=== PATIENT | female | born 1960 | race Caucasian/White ===

== ENCOUNTER 2019-09-14 06:46 | Outpatient (RCR) | payer MEDICARE, SELFPAY ==
[2019-06-22 08:41] LABS: INR 2.7; Prothrombin Time 27.9 Seconds (11.1-14.7)
[2019-07-20 08:12] LABS: INR 2.9; Prothrombin Time 29.7 Seconds (11.1-14.7)
[2019-08-17 08:20] LABS: INR 3.1; Prothrombin Time 31.3 Seconds (11.1-14.7)
[2019-09-14 07:31] LABS: Alanine Aminotransferase 32 U/L (4-35); Aspartate Amino Transferase 47 U/L (14-36); Cholesterol 163 mg/dL (0-200); HDL Direct 47 mg/dL; Triglycerides 244 mg/dL (<150)
[2019-09-14 07:42] LABS: LDL Cholesterol Direct 80 mg/dL
[2019-09-14 07:43] LABS: INR 2.7; Prothrombin Time 28.5 Seconds (11.1-14.7)
== END 2019-09-20 23:59 | disposition home or self-care (01) ==
LOC: ANHLAB 06:46
PROVIDERS: Visit Provider Internal Medicine Cardiovascular Disease
DX: Z51.81 Encounter for therapeutic drug level monitoring (principal); I63.9 Cerebral infarction, unspecified; E78.5 Hyperlipidemia, unspecified; Z79.01 Long term (current) use of anticoagulants
CPT/HCPCS: 36415; 80061; 84450; 84460; 85610

== ENCOUNTER 2019-12-14 06:58 | Outpatient (RCR) | payer MEDICARE, SELFPAY ==
[2019-10-12 07:49] LABS: INR 3.2; Prothrombin Time 32.1 Seconds (11.1-14.7)
[2019-10-26 07:44] LABS: INR 2.3; Prothrombin Time 24.5 Seconds (11.1-14.7)
[2019-11-16 07:38] LABS: INR 3.1; Prothrombin Time 31.3 Seconds (11.1-14.7)
[2019-12-14 08:00] LABS: INR 2.9; Prothrombin Time 30.1 Seconds (11.1-14.7)
== END 2020-01-10 23:59 | disposition home or self-care (01) ==
LOC: ANHLAB 06:58
PROVIDERS: Visit Provider Internal Medicine Cardiovascular Disease
DX: Z51.81 Encounter for therapeutic drug level monitoring (principal); I63.9 Cerebral infarction, unspecified; Z79.01 Long term (current) use of anticoagulants
CPT/HCPCS: 36415; 85610

== ENCOUNTER 2020-02-08 07:22 | Outpatient (RCR) | payer MEDICARE, SELFPAY ==
[2020-01-11 07:31] LABS: INR 2.5; Prothrombin Time 26.8 Seconds (11.1-14.7)
[2020-02-08 07:54] LABS: INR 2.6; Prothrombin Time 27.5 Seconds (11.1-14.7)
== END 2020-04-10 23:59 | disposition home or self-care (01) ==
LOC: ANHLAB 07:22
PROVIDERS: Visit Provider Internal Medicine Cardiovascular Disease
DX: I63.9 Cerebral infarction, unspecified (principal); Z79.01 Long term (current) use of anticoagulants
CPT/HCPCS: 36415; 85610

== ENCOUNTER 2020-05-16 06:51 | Outpatient (RCR) | payer MEDICARE, SELFPAY ==
[2020-03-07 08:04] LABS: INR 2.8; Prothrombin Time 28.7 Seconds (11.1-14.7)
[2020-04-04 08:29] LABS: INR 3.8; Prothrombin Time 36.7 Seconds (11.1-14.7)
[2020-04-18 07:52] LABS: INR 2.7; Prothrombin Time 28.5 Seconds (11.1-14.7)
[2020-05-16 07:56] LABS: INR 2.5; Prothrombin Time 26.5 Seconds (11.1-14.7)
== END 2020-06-05 23:59 | disposition home or self-care (01) ==
LOC: ANHLAB 06:51
PROVIDERS: Visit Provider Internal Medicine Cardiovascular Disease
DX: Z51.81 Encounter for therapeutic drug level monitoring (principal); I63.9 Cerebral infarction, unspecified; Z79.01 Long term (current) use of anticoagulants
CPT/HCPCS: 36415; 85610

== ENCOUNTER 2020-09-05 06:42 | Outpatient (RCR) | payer MEDICARE, SELFPAY ==
[2020-06-13 07:48] LABS: INR 2.3; Prothrombin Time 25.1 Seconds (11.1-14.7)
[2020-07-11 08:44] LABS: Prothrombin Time 23.3 Seconds (11.1-14.7)
[2020-08-10 08:54] LABS: INR 2.7; Prothrombin Time 28.9 Seconds (11.1-14.7)
[2020-09-05 07:50] LABS: INR 2.4; Prothrombin Time 26.6 Seconds (11.1-14.7)
== END 2020-09-11 23:59 | disposition home or self-care (01) ==
LOC: ANHLAB 06:42
PROVIDERS: Visit Provider Internal Medicine Cardiovascular Disease
DX: Z51.81 Encounter for therapeutic drug level monitoring (principal); I63.9 Cerebral infarction, unspecified; Z79.01 Long term (current) use of anticoagulants
CPT/HCPCS: 36415; 85610

== ENCOUNTER 2020-12-05 06:57 | Outpatient (RCR) | payer MEDICARE, SELFPAY ==
[2020-10-03 07:51] LABS: Basophils Absolute Auto 0.1 K/mm3 (0.0-0.1); Eosinophils Absolute Auto 0.2 K/mm3 (0-0.3); Eosinophils Percent Auto 2.7 % (0-4.4); Hematocrit 39.2 % (37.0-47.0); Hemoglobin 13.1 g/dL (12.0-15.0); Immature Granulocyte Absolute 0.03 K/mm3 (0.00-0.031); Immature Granulocyte Percent A 0.4 % (0-0.5); Lymphocytes Absolute Auto 1.68 K/mm3 (0.9-3.2); Lymphocytes Percent Auto 24.2 % (18.3-44.2); Mean Corpuscular HGB Conc 33.4 g/dl (32-36); Mean Corpuscular Hemoglobin 31.6 pg (26-34); Mean Corpuscular Volume 94.7 fl (80-100); Monocytes Absolute Auto 0.7 K/mm3 (0.1-0.6); Monocytes Percent Auto 9.8 % (2.6-8.5); Neutrophils Absolute Auto 4.3 K/mm3 (1.3-6.7); Neutrophils Percent Auto 61.9 % (45.5-73.1); Platelet Count Result 293 k/mm3 (150-375); Red Blood Count 4.14 M/mm3 (4.2-5.4); Red Cell Distribution Width 15.5 % (11.5-14.5); White Blood Count 6.9 K/mm3 (4.5-10.0)
[2020-10-03 07:54] LABS: Alanine Aminotransferase 23 U/L (4-35); Albumin Level 4.1 g/dL (3.5-5.1); Alkaline Phosphatase 76 U/L (38-126); Anion Gap 5 mmol/L (8-16); Aspartate Amino Transferase 32 U/L (14-36); Bilirubin,Total 0.9 mg/dL (0.2-1.3); Blood Urea Nitrogen 10 mg/dL (7-17); Calcium 9.5 mg/dL (8.4-10.2); Carbon Dioxide 30 mmol/L (22-30); Chloride 99 mmol/L (98-107); Cholesterol 154 mg/dL (0-200); Estimated Glomerular Filt Rate > 60; Glucose 105 mg/dL (65-105); HDL Direct 49 mg/dL; Sodium 134 mmol/L (137-145); Triglycerides 130 mg/dL (<150)
[2020-10-03 07:55] LABS: INR 2.3; Prothrombin Time 26.2 Seconds (11.1-14.7)
[2020-10-03 08:05] LABS: LDL Cholesterol Direct 74 mg/dL
[2020-11-07 07:55] LABS: INR 2.2; Prothrombin Time 24.8 Seconds (11.1-14.7)
[2020-12-05 07:36] LABS: Basophils Absolute Auto 0.1 K/mm3 (0.0-0.1); Eosinophils Absolute Auto 0.2 K/mm3 (0-0.3); Eosinophils Percent Auto 3.1 % (0-4.4); Hematocrit 39.6 % (37.0-47.0); Hemoglobin 13.2 g/dL (12.0-15.0); Immature Granulocyte Absolute 0.03 K/mm3 (0.00-0.031); Immature Granulocyte Percent A 0.5 % (0-0.5); Lymphocytes Absolute Auto 1.67 K/mm3 (0.9-3.2); Lymphocytes Percent Auto 27.4 % (18.3-44.2); Mean Corpuscular HGB Conc 33.3 g/dl (32-36); Mean Corpuscular Hemoglobin 31.4 pg (26-34); Mean Corpuscular Volume 94.3 fl (80-100); Mean Platelet Volume 8.7 fl (7.4-10.4); Monocytes Absolute Auto 0.6 K/mm3 (0.1-0.6); Monocytes Percent Auto 9.5 % (2.6-8.5); Neutrophils Absolute Auto 3.6 K/mm3 (1.3-6.7); Neutrophils Percent Auto 58.5 % (45.5-73.1); Platelet Count Result 292 k/mm3 (150-375); Red Cell Distribution Width 15.2 % (11.5-14.5); White Blood Count 6.1 K/mm3 (4.5-10.0)
[2020-12-05 07:47] LABS: Alanine Aminotransferase 26 U/L (4-35); Albumin Level 4.3 g/dL (3.5-5.1); Alkaline Phosphatase 70 U/L (38-126); Anion Gap 3 mmol/L (8-16); Aspartate Amino Transferase 38 U/L (14-36); Bilirubin,Total 0.9 mg/dL (0.2-1.3); Blood Urea Nitrogen 8 mg/dL (7-17); Calcium 9.4 mg/dL (8.4-10.2); Carbon Dioxide 33 mmol/L (22-30); Chloride 98 mmol/L (98-107); Cholesterol 179 mg/dL (0-200); Estimated Glomerular Filt Rate > 60; Glucose 106 mg/dL (65-105); HDL Direct 52 mg/dL; Potassium 4.5 mmol/L (3.4-5.0); Sodium 134 mmol/L (137-145); Triglycerides 201 mg/dL (<150)
[2020-12-05 07:57] LABS: LDL Cholesterol Direct 83 mg/dL
[2020-12-05 07:58] LABS: INR 2.1; Prothrombin Time 24.2 Seconds (11.1-14.7)
[2020-12-05 09:24] LABS: Free T4 Free Thyroxine Reflex 0.07 ng/dL (0.78-2.19)
== END 2021-01-01 23:59 | disposition home or self-care (01) ==
LOC: ANHLAB 06:57
PROVIDERS: PCP Family Medicine; Referring Provider Nurse Practitioner Family; Visit Provider Internal Medicine Cardiovascular Disease
DX: Z51.81 Encounter for therapeutic drug level monitoring (principal); I63.9 Cerebral infarction, unspecified; I10 Essential (primary) hypertension; E78.5 Hyperlipidemia, unspecified; Z79.01 Long term (current) use of anticoagulants
CPT/HCPCS: 36415; 80048; 80061; 80076; 84439; 84443; 84480; 85025; 85610

== ENCOUNTER 2020-12-05 16:24 | Emergency (ER) | payer MEDICARE, SELFPAY ==
--- NOTE | ~2020-12-05 | CT_ITS ---
EXAMINATION: CT brain wo con DATE: 12/05/2020 19:25 INDICATION: Syncope TECHNIQUE: Computed tomography (CT) of the head was performed without intravenous contrast. The dose- length product was 605.33 mGy-cm. Automated exposure control and iterative reconstruction technique w ere employed. COMPARISON: CT dated 12/05/2020 FINDINGS: No acute intracranial hemorrhage, infarction, mass or mass effect. There are scattered mode rate periventricular and subcortical white matter changes, most likely related to small vessel ischem ic disease (microangiopathy). Chronic right frontal lobe infarction. New left posterior parietal scal p hematoma. No ventriculomegaly or midline shift. Basilar cisterns are patent. No depressed skull fra ctures. No midline shift. IMPRESSION: 1. No acute intracranial abnormality. Reviewed, dictated and finalized at location A.
--- NOTE | ~2020-12-05 | XR_ITS ---
XR hip RT 2V w AP pelvis 12/05/2020 16:57 INDICATION: Right hip pain PROCEDURE: AP pelvis and 2 views right hip COMPARISON: No prior studies for comparison. FINDINGS: Fracture, dislocation or subluxation is not identified. There is moderate colonic fecal redd ding. Pelvic rings are intact. There are healed left superior and inferior pubic rami fractures. The soft tissues appear within normal limits. No foreign bodies are identified. IMPRESSION: 1: No acute fracture. 2: Healed left superior and inferior pubic rami fractures. Reviewed, dictated and finalized at location A.
--- NOTE | ~2020-12-05 | XR_ITS ---
EXAMINATION: XR chest 1V 12/05/2020 19:36 INDICATION: Syncope. History of CVA. PROCEDURE: AP view of the chest COMPARISON: 10/28/2016 FINDINGS: The lungs are clear. The cardiomediastinal silhouette is within normal limits. There are no pleural effusions. There is no pneumothorax suspected. IMPRESSION: 1: NO ACUTE CARDIOPULMONARY DISEASE. Reviewed, dictated and finalized at location A.
--- NOTE | ~2020-12-05 | CT_ITS ---
EXAMINATION: CT abdomen pelvis w con DATE: 12/05/2020 19:33 INDICATION: Sudden change in condition. Generalized abdominal pain. Status post fall. TECHNIQUE: Computed tomography (CT) of the abdomen and pelvis was performed with 100 cc Omnipaque 350 intravenous contrast. The dose-length product was 1306.48 mGy-cm. Automated exposure control and ite rative reconstruction technique were employed. COMPARISON: No prior studies for comparison. FINDINGS: Bibasilar dependent atelectasis. Small pericardial effusion. No significant pleural effusio n. Small hiatal hernia with thickening of the distal esophagus. There is a 1.5 x 1.1 cm stone at the left UPJ causing moderate hydronephrosis. There are bilateral re nal stones. No significant right hydronephrosis. There are bladder stones. There is bladder wall thic kening. There is extensive fatty stranding in the right perirectal region extending into the gluteal location. There is mass effect on the rectum directed to the left. There is extensive complex soft ti ssue in the right flank soft tissues posteriorly. There is a healing left superior pubic ramus fractu re. Normal lumbar lordosis. No acute osseous abnormality. There is abnormal thickening of the sigmoid colon. IMPRESSION: 1. Extensive right posterior flank and right perirectal soft tissue infiltration/fluid. Consider post traumatic hemorrhage, although infection is not excluded. 2: Abnormal thickening of the sigmoid colon, suspicious for adenocarcinoma versus sequela of chronic diverticulitis. 3: Left UPJ stone measuring 1.5 cm with moderate hydronephrosis. Bilateral nephrolithiasis. 4: Bladder wall thickening multiple bladder stones. Findings suspicious for chronic cystitis. 5: Small hiatal hernia with thickened distal esophagus, concerning for esophagitis. 6: Small pericardial effusion. Reviewed, dictated and finalized at location A. IMPRESSION: 1. Extensive right posterior flank and right perirectal soft tissue infiltratio n/fluid. Consider posttraumatic hemorrhage, although infection is not excluded. 2: Abnormal thickening of the sigmoid colon, suspicious for adenocarcinoma yulia cory sequela of chronic diverticulitis. 3: Left UPJ stone measuring 1.5 cm with moderate hydronephrosis. Bilateral neph rolithiasis. 4: Bladder wall thickening multiple bladder stones. Findings suspicious for ch ronic cystitis. 5: Small hiatal hernia with thickened distal esophagus, concerning for esophagi tis. 6: Small pericardial effusion.
--- NOTE | ~2020-12-05 | CT_ITS ---
EXAMINATION: CT cervical spine wo con DATE: 12/05/2020 16:44 INDICATION: Neck pain after fall TECHNIQUE: Computed tomography (CT) of the cervical spine was performed without intravenous contrast. The dose-length product was 334 mGy-cm. Automated exposure control and iterative reconstruction tech nique were employed. COMPARISON: None FINDINGS: No fracture, subluxation or dislocation. Vertebral body heights are maintained. No signific ant paraspinal soft tissue abnormality. Osteopenia. There are mild degenerative changes of the facet joints. Odontoid process within normal limits. No prevertebral soft tissue abnormality. No evidence f or perched facet. IMPRESSION: 1. No acute abnormality of the cervical spine. Reviewed, dictated and finalized at location A.
--- NOTE | ~2020-12-05 | CT_ITS ---
EXAMINATION: CT brain wo con DATE: 12/05/2020 16:44 INDICATION: Trauma to the head. Headache. Patient on blood thinners. TECHNIQUE: Computed tomography (CT) of the head was performed without intravenous contrast. The dose- length product was 605.33 mGy-cm. The mA was adjusted according to patient size. Iterative reconstruc tion technique was employed. COMPARISON: CT dated 10/28/2016 FINDINGS: Chronic right frontal lobe infarction. There are scattered moderate periventricular and sub cortical white matter changes, most likely related to small vessel ischemic disease (microangiopathy) . No acute intracranial hemorrhage, infarction, mass or mass effect. Basilar cisterns are patent. Par anasal sinuses and mastoids are pneumatized. IMPRESSION: 1. No acute intracranial abnormality. Reviewed, dictated and finalized at location A.
--- NOTE | ~2020-12-05 | XR_ITS ---
XR hand LT min 3V 12/05/2020 16:57 Indication: Left hand pain after fall Procedure: 3 views left hand Comparison: No prior studies for comparison. Findings: There is mild polyarticular osteoarthritis. No acute fracture or traumatic malalignment. Os teopenia. No erosive changes. No foreign bodies. Impression: 1: No acute fracture. Reviewed, dictated and finalized at location A. Impression: 1: No acute fracture.
[2020-12-05 16:32] VITALS: BP 144/75; PULSE 82; RESP 16; O2SAT 100
--- NOTE | 2020-12-05 16:48 | ED.HEATRA ---
HPI - Head Injury General Chief complaint: Head Injury <Cindy Rodriguez MD - Last Filed: 12/06/20 07:05> Stated complaint: fall <Cindy Rodriguez MD - Last Filed: 12/06/20 07:05> Time Seen by Provider: 12/05/20 19:39 <Cindy Rodriguez MD - Last Filed: 12/06/20 07:05> Source: patient <Cindy Rodriguez MD - Last Filed: 12/06/20 07:05> Mode of arrival: EMS <Cindy Rodriguez MD - Last Filed: 12/06/20 07:05> Limitations: no limitations <Cindy Rodriguez MD - Last Filed: 12/06/20 07:05> History of Present Illness HPI Narrative: This is a 60 year old female who presents for evaluation of head injury s/p fall. Patient accidentally lost her balance going down stair and she fell down 4 steps. She hit the back of her head on stairs, but denies LOC. She denies head, dizziness, nausea or vomiting. She takes coumadin, and she has a laceration to posterior scalp. She has a c collar in place. She also reports mild right hip pain but she reports her pain is only mild. She denies rib pain . She has skin tears to her hand as well. <Cindy Rodriguez MD - Last Filed: 12/06/20 07:05> Related Data Allergies/Adverse reactions: Allergies Allergy/AdvReac Type Severity Reaction Status Date / Time No Known Allergies Allergy Verified 10/28/16 12:03 <Cindy Rodriguez MD - Last Filed: 12/06/20 07:05> Review of Systems Review of Systems: All systems reviewed & are unremarkable except as noted in HPI and below <Cindy Rodriguez MD - Last Filed: 12/06/20 07:05> [facility] Past Medical History Medical History: Medical History (Updated 12/06/20 @ 00:00 by Background Daemon) CVA (cerebral vascular accident) Hyperlipidemia Hypertension <Cindy Rodriguez MD - Last Filed: 12/06/20 07:05> Family History Family History: Family History (Updated 12/08/16 @ 17:51 by DOCTOR UNKNOWN) Father Family history of primary malignant neoplasm of liver <Cindy Rodriguez MD - Last Filed: 12/06/20 07:05> Social History Social History: Social History Smoking status: Current every day smoker Alcohol intake: never Gender identity (if verbalized by the patient): Female <Cinyd Rodriguez MD - Last Filed: 12/06/20 07:05> Exam Const: General: no acute distress and alert <Cindy Rodriguez MD - Last Filed: 12/06/20 07:05> Orientation/consciousness: patient oriented x3 <Cindy Rodriguez MD - Last Filed: 12/06/20 07:05> HENMT: Throat: posterior oropharynx normal, tonsils normal and uvula midline <Cindy Rodriguez MD - Last Filed: 12/06/20 07:05> Other: right posterior scalp lump( chronic); left posterior scalp hematoma with laceration. bleeding controlled <Cindy Rodriguez MD - Last Filed: 12/06/20 07:05> Eyes: Pupils: Equal, round and reactive pupils present <Cindy Rodriguez MD - Last Filed: 12/06/20 07:05> EOM: EOMs intact bilaterally <Cindy Rodriguez MD - Last Filed: 12/06/20 07:05> Chest: Chest palpation & inspection: normal inspection of the chest <Cindy Rodriguez MD - Last Filed: 12/06/20 07:05> Resp: Effort & Inspection: normal respiratory effort and no retractions <Cindy Rodriguez MD - Last Filed: 12/06/20 07:05> Auscultation: clear to auscultation bilaterally <Cindy Rodriguez MD - Last Filed: 12/06/20 07:05> Cardio: Rate: regular rate <Cindy Rodriguez MD - Last Filed: 12/06/20 07:05> Rhythm: regular rhythm <Cindy Rodriguez MD - Last Filed: 12/06/20 07:05> Heart sounds: no murmurs <Cindy Rodriguez MD - Last Filed: 12/06/20 07:05> GI: GI Palp: Yes Soft to palpation, No Tenderness to palpation present (GI) and No Guarding due to palpation present (GI) <Cindy Rodriguez MD - Last Filed: 12/06/20 07:05> Skin: Other: left hand dorsum , skin tear, no bleeding <Cindy Rodriguez MD - Last Filed: 12/06/20 07:05> Neuro: General: patient oriented x3 and moves all extremities <Cindy Rodriguez MD - Last Filed: 12/06/20 07:05>
[2020-12-05 17:15] LABS: Basophils Absolute Auto 0.1 K/mm3 (0.0-0.1); Basophils Percent Auto 0.9 % (0.2-1.2); Eosinophils Absolute Auto 0.2 K/mm3 (0-0.3); Eosinophils Percent Auto 2.5 % (0-4.4); Hematocrit 38.4 % (37.0-47.0); Hemoglobin 12.8 g/dL (12.0-15.0); Immature Granulocyte Absolute 0.04 K/mm3 (0.00-0.031); Immature Granulocyte Percent A 0.5 % (0-0.5); Lymphocytes Absolute Auto 2.02 K/mm3 (0.9-3.2); Lymphocytes Percent Auto 25.3 % (18.3-44.2); Mean Corpuscular HGB Conc 33.3 g/dl (32-36); Mean Corpuscular Hemoglobin 31.4 pg (26-34); Mean Corpuscular Volume 94.3 fl (80-100); Mean Platelet Volume 8.8 fl (7.4-10.4); Monocytes Absolute Auto 0.7 K/mm3 (0.1-0.6); Monocytes Percent Auto 8.8 % (2.6-8.5); Platelet Count Result 287 k/mm3 (150-375); Red Blood Count 4.07 M/mm3 (4.2-5.4); Red Cell Distribution Width 15.1 % (11.5-14.5)
[2020-12-05 17:25] LABS: Alanine Aminotransferase 24 U/L (4-35); Albumin Level 4.2 g/dL (3.5-5.1); Alkaline Phosphatase 64 U/L (38-126); Anion Gap 1 mmol/L (8-16); Aspartate Amino Transferase 38 U/L (14-36); Bilirubin,Total 0.8 mg/dL (0.2-1.3); Blood Urea Nitrogen 10 mg/dL (7-17); Calcium 9.1 mg/dL (8.4-10.2); Carbon Dioxide 34 mmol/L (22-30); Chloride 98 mmol/L (98-107); Estimated CRCL calculation 61 ml/min; Estimated Glomerular Filt Rate > 60; Glucose 101 mg/dL (65-105); Potassium 4.7 mmol/L (3.4-5.0); Sodium 133 mmol/L (137-145)
[2020-12-05 17:27] LABS: INR 2.3; Prothrombin Time 25.6 Seconds (11.1-14.7)
[2020-12-05] MEDS: LIDO 1%/EPINEPHRINE 1:100,000 20 ML VIAL INFILTRATE (17:33)
--- NOTE | 2020-12-05 18:12 | PC.NURSE ---
pt refuses x 2 to ambulate with assist. md made aware. ice pack to posterior head per md request
[2020-12-05] MEDS: ACETAMINOPHEN 500 MG TABLET 1000 MG PO (18:17)
--- NOTE | 2020-12-05 18:39 | PC.NURSE ---
183-While out front of ED waiting for transportation to pull up pt suddenly slumped over to rt side, became unresponsive and incont of urine. rushed back to ed room 10. md present. pt moans to sternal rub. vs: hr 76, o2 sat 97 %, resp 17, bp 86/60 and accucheck 128. pt more arousable at 1842. iv site 18 [address] rt ac. 185-pt drowsy but arousable. pt remembers getting into wheelchair and going to ed exit.
--- NOTE | 2020-12-05 18:40 | ECG_ITS ---
Measurements Intervals [place] Rate: 69 P: 2 IN: 177 QRS: -57 QRSD: 86 T: 121 QT: 412 QTc: 443 Interpretive Statements SINUS OR ECTOPIC ATRIAL RHYTHM LOW QRS VOLTAGE IN PRECORDIAL LEADS ANTEROSEPTAL INFARCT, AGE INDETERMINATE INFERIOR INFARCT, AGE INDETERMINATE BORDERLINE ST-T WAVE ABNORMALITY- LAT/HIGH LAT LEADS BASELINE ARTIFACT- II, III, AVF ABNORMAL ECG Electronically Signed On 12-05-2020 19:01:01 CDT by Govind Alfonso D.O.
[2020-12-05 18:43] LABS: Glucose Point of Care 128 (65-105)
[2020-12-05 18:52] VITALS: BP 86/60; PULSE 76; RESP 17; O2SAT 97
[2020-12-05] MEDS: SODIUM CHLORIDE 0.9% IV 1,000 ML 999 ML IV CONT ×2 (18:57→20:01)
[2020-12-05 19:03] VITALS: BP 85/57; PULSE 66; RESP 14; O2SAT 97
[2020-12-05 19:04] LABS: Hematocrit 37.4 % (37.0-47.0); Hemoglobin 12.5 g/dL (12.0-15.0)
[2020-12-05] MEDS: PHYTONADIONE ADULT INJ 10 MG in DEXTROSE 5% IN WATER 50 ML 100 MG IVPB (20:40)
--- NOTE | 2020-12-05 20:44 | PC.NURSE ---
called [facility] to request transport. ETA 2100
[2020-12-05 20:46] VITALS: BP 113/56; PULSE 70; RESP 17; O2SAT 100
--- NOTE | 2020-12-05 21:24 | PC.NURSE ---
Called [facility] for ETA update. ETA 10 minutes.
== END 2020-12-05 21:10 | disposition short-term general hospital (02) ==
PROVIDERS: General Practice; Emergency Provider Emergency Medicine; PCP Family Medicine
DX: S01.01XA Laceration without foreign body of scalp, initial encounter (principal); S61.412A Laceration without foreign body of left hand, initial encounter; S30.1XXA Contusion of abdominal wall, initial encounter; M25.551 Pain in right hip; R55 Syncope and collapse; Z86.73 Personal history of transient ischemic attack (TIA), and cerebral infarction without residual deficits; E78.5 Hyperlipidemia, unspecified; I10 Essential (primary) hypertension; R94.31 Abnormal electrocardiogram [ECG] [EKG]; R93.3 Abnormal findings on diagnostic imaging of other parts of digestive tract; N13.2 Hydronephrosis with renal and ureteral calculous obstruction; N21.0 Calculus in bladder; K44.9 Diaphragmatic hernia without obstruction or gangrene; W10.9XXA Fall (on) (from) unspecified stairs and steps, initial encounter
CPT/HCPCS: 36415; 70450; 71045; 72125; 73130; 73502; 74177; 80048; 80053; 80061; 80076; 82948; 84439; 84443; 84480; 85014; 85018; 85025; 85610; 85730; 86850; 86900; 86901; 93005; 96361; 96365; 99285; A9270; J3430; J7030; Q9967

== ENCOUNTER 2021-02-06 07:10 | Outpatient (RCR) | payer MEDICARE, SELFPAY ==
[2021-01-02 08:03] LABS: Basophils Absolute Auto 0.1 K/mm3 (0.0-0.1); Eosinophils Absolute Auto 0.2 K/mm3 (0-0.3); Eosinophils Percent Auto 2.4 % (0-4.4); Hematocrit 35.2 % (37.0-47.0); Hemoglobin 11.1 g/dL (12.0-15.0); Immature Granulocyte Absolute 0.03 K/mm3 (0.00-0.031); Immature Granulocyte Percent A 0.5 % (0-0.5); Lymphocytes Absolute Auto 1.24 K/mm3 (0.9-3.2); Mean Corpuscular HGB Conc 31.5 g/dl (32-36); Mean Corpuscular Hemoglobin 31.1 pg (26-34); Mean Corpuscular Volume 98.6 fl (80-100); Mean Platelet Volume 8.4 fl (7.4-10.4); Monocytes Absolute Auto 0.7 K/mm3 (0.1-0.6); Monocytes Percent Auto 10.8 % (2.6-8.5); Neutrophils Percent Auto 65.3 % (45.5-73.1); Platelet Count Result 388 k/mm3 (150-375); Red Blood Count 3.57 M/mm3 (4.2-5.4); Red Cell Distribution Width 18.2 % (11.5-14.5); White Blood Count 6.2 K/mm3 (4.5-10.0)
[2021-01-02 08:14] LABS: INR 2.5; Prothrombin Time 27.6 Seconds (11.1-14.7)
[2021-01-02 09:30] LABS: Alanine Aminotransferase 15 U/L (4-35); Alkaline Phosphatase 83 U/L (38-126); Anion Gap 5 mmol/L (8-16); Aspartate Amino Transferase 28 U/L (14-36); Bilirubin,Total 0.8 mg/dL (0.2-1.3); Blood Urea Nitrogen 8 mg/dL (7-17); Calcium 9.6 mg/dL (8.4-10.2); Carbon Dioxide 28 mmol/L (22-30); Chloride 100 mmol/L (98-107); Cholesterol 152 mg/dL (0-200); Estimated Glomerular Filt Rate > 60; Glucose 106 mg/dL (65-105); HDL Direct 46 mg/dL; Potassium 4.2 mmol/L (3.4-5.0); Sodium 133 mmol/L (137-145); Triglycerides 123 mg/dL (<150)
[2021-01-02 09:41] LABS: LDL Cholesterol Direct 65 mg/dL
[2021-01-02 09:46] LABS: Free T4 Free Thyroxine 0.48 ng/mL (0.78-2.19)
[2021-01-02 10:00] LABS: Total Triiodothyronine (T3) 0.65 NG/ML (0.97-1.69)
[2021-02-06 07:45] LABS: Prothrombin Time 92.5 Seconds (11.1-14.7)
[2021-02-06 08:04] LABS: INR 12.4
== END 2021-04-02 23:59 | disposition home or self-care (01) ==
LOC: ANHLAB 07:10
PROVIDERS: Nurse Practitioner Family; PCP Family Medicine; Visit Provider Internal Medicine Cardiovascular Disease
DX: Z51.81 Encounter for therapeutic drug level monitoring (principal); R79.89 Other specified abnormal findings of blood chemistry; I63.9 Cerebral infarction, unspecified; Z79.01 Long term (current) use of anticoagulants
CPT/HCPCS: 36415; 80048; 80061; 80076; 84439; 84443; 84480; 85025; 85610

== ENCOUNTER 2021-02-08 11:46 | Inpatient (IN) | payer MEDICARE, SELFPAY ==
[2021-02-08] VITALS (48 sets, daily range): BP systolic 75–118; BP diastolic 50–79; PULSE 83–98; RESP 11–21; TEMP 35.6–36.9; O2SAT 88–100; BMI 31.6
--- NOTE | ~2021-02-08 | CT_ITS ---
EXAMINATION: CT abdomen pelvis w con DATE: 02/08/2021 14:36 INDICATION: Sacral decubitus ulcer. TECHNIQUE: Computed tomography (CT) of the abdomen and pelvis was performed with 100 mL Omnipaque 350 intravenous contrast. Automated exposure control and iterative reconstruction technique were employe d. The dose-length product was 606.85 mGy-cm. COMPARISON: CT abdomen and pelvis 12/05/2020 FINDINGS: The visualized portions of the lung bases demonstrate mild atelectasis. No pleural effusion . The heart size is normal. There is an old infarct involving the apex and anterior and septal wilkes of left ventricle. There are coronary artery calcifications. Again seen is a small pericardial effusi on. There is focal steatosis in the liver adjacent to the falciform ligament. Again seen is a 6 mm le noah in right hepatic lobe, likely benign. There are changes of cholecystectomy. There is a small sli ding hiatal hernia. The spleen, pancreas, and adrenal glands are normal. There are stones in the kidn eys including bilateral staghorn calculi. The left kidney stone measures 2.0 cm. There are stones in the bladder. There is diverticulosis of the colon without evidence of diverticulitis. There is a mode rate volume of stool in colon. Pelvic floor relaxation is noted. There is a supraumbilical ventral he rnia containing fat. Right psoas muscle is enlarged with central low attenuation. Left obturator inte rnus muscle is enlarged. There is subcutaneous fat stranding overlying the sacrum. No evidence of ost eomyelitis. IMPRESSION: 1. New enlargement and central low attenuation involving right psoas muscle, consistent with hematoma versus myositis/abscess. New enlargement of left obturator internus muscle, likely hematoma. 2. Bilateral nonobstructing kidney stones. Bladder stones. 3. Supraumbilical ventral hernia containing fat. 4. Subcutaneous fat stranding overlying the sacrum, consistent with inflammation/scarring. No evidenc e of osteomyelitis. Reviewed, dictated and finalized at location A. IMPRESSION: 1. New enlargement and central low attenuation involving right psoas muscle, co nsistent with hematoma versus myositis/abscess. New enlargement of left obturat or internus muscle, likely hematoma. 2. Bilateral nonobstructing kidney stones. Bladder stones. 3. Supraumbilical ventral hernia containing fat. 4. Subcutaneous fat stranding overlying the sacrum, consistent with inflammatio n/scarring. No evidence of osteomyelitis.
--- NOTE | ~2021-02-08 | CT_ITS ---
EXAMINATION: CT brain wo con INDICATION: Generalized weakness, history of CVA COMPARISON: 12/05/2020 TECHNIQUE: Standard unenhanced head CT. The dose-length product (DLP) was 681.00 mGy-cm. The mA was a djusted according to patient size. Iterative reconstruction technique was employed. FINDINGS: There is no acute intraparenchymal hemorrhage. No evidence of mass lesion. No evidence of a cute infarction. There is moderate periventricular and subcortical hypodensity probably related to sm all vessel ischemic disease. There is mild prominence of the sulci and ventricles related to cerebral atrophy. Intracranial calcified cerebral atherosclerosis is noted. There are no extra-axial collecti ons. There is no mass effect or midline shift. The orbits and soft tissues are unremarkable. The visu alized sinuses and mastoid air cells are well aerated. IMPRESSION: 1. No acute intracranial abnormality. 2. Age related findings. Reviewed, dictated and finalized at location B.
--- NOTE | ~2021-02-08 | XR_ITS ---
EXAMINATION: XR chest 1V portable INDICATION: Weakness TECHNIQUE: Portable AP chest at 1307 hours COMPARISON: 12/05/2020 FINDINGS: There are minimal left basilar airspace opacities. No pleural effusion or pneumothorax is i dentified. The cardiomediastinal silhouette is there is osteoarthritis of the shoulders. Severe cervi radha spondylosis is noted. IMPRESSION: 1. Minimal left basilar airspace opacity, consistent with atelectasis versus pneumonia. Reviewed, dictated and finalized at location B. IMPRESSION: 1. Minimal left basilar airspace opacity, consistent with atelectasis versus pn eumonia.
--- NOTE | 2021-02-08 12:44 | ECG_ITS ---
Measurements Intervals [place] Rate: 90 P: 41 AR: 160 QRS: -30 QRSD: 86 T: 50 QT: 379 QTc: 464 Interpretive Statements SINUS RHYTHM ANTEROSEPTAL INFARCT, AGE INDETERMINATE INFERIOR INFARCT, AGE INDETERMINATE BORDERLINE ST-T WAVE ABNORMALITY- HIGH LATERAL LEADS BASELINE ARTIFACT- I, II, III, AVR, AVL, AVF, V1-V6 ABNORMAL ECG Electronically Signed On 02-08-2021 13:50:34 CDT by Govind Alfonso D.O.
--- NOTE | 2021-02-08 12:48 | ED.RECABL ---
HPI - Recheck/Abnormal Lab/Rx General Chief Complaint: Recheck/Abnormal Lab/Rx Stated Complaint: Low INR Time Seen by Provider: 02/08/21 12:27 Source: family and RN notes reviewed Mode of arrival: wheelchair Limitations: other (poor historian) History of Present Illness HPI narrative: This is a 60 year old female with history of CVA, CHF, chronic anticoagulation who presents from home for evaluation of high INR. Patient takes warfarin daily for history of CVA. On review of her medical records, she had INR 12.4 on 02/06/21. She states she was told by her accounting practice manager, Dr. Mora, that she needed to come to ER . Her family states patient stopped walking approximately 2-3 weeks. She was taking care of herself until 1 week ago. Her son is at bedside, and he states his noticed patient had a bleeding buttock wound on Monday . It is unclear how long she had had these buttock wounds, and patient states she does not know how long the wounds have been present. She states it has not been bothering her. She denies any pain. She denies nausea, vomiting, chest pain, sob, headache, dizziness. Her family states patient has not fallen since November. She also denies bloody stools. complaint: abnormal lab Related Data Home Medications Medication Instructions Recorded Confirmed atorvastatin 80 mg PO DAILY 02/08/21 02/08/21 levothyroxine 75 mcg PO DAILY 02/08/21 02/08/21 lisinopril 5 mg PO DAILY 02/08/21 02/08/21 metoprolol succinate 50 mg PO DAILY 02/08/21 02/08/21 warfarin See Rx Instructions .ROUTE .COMPLEX 02/08/21 02/08/21 Allergies Allergy/AdvReac Type Severity Reaction Status Date / Time No Known Allergies Allergy Verified 02/08/21 17:39 Review of Systems Review of Systems: All systems reviewed & are unremarkable except as noted in HPI and below [facility] Past Medical History Medical History (Updated 02/08/21 @ 21:40 by Cindy Rodriguez MD) Abnormal stress test (10/31/16) Large area of severe infarct involving left ventricular apex, all apical segments, and mid inferior and mid inferolateral segments with apical akinesis and global hypokinesis with left ventricular ejection fraction measuring 35%. Cerebrovascular accident (10/2016) Punctate right parietal focus on MRI on 10/28/2016 Likely cardioembolic in etiology though no thrombus seen at that point in time. Coronary artery disease Cardiac catheterization on 11/23/2016 showed proximal occlusion of the LAD with left collaterals involving the distal LAD, 1st diagonal artery had 90% ostial stenosis, 70% ostial on when, mid circumflex lesion that was 80% and then a chronic total occlusion, 2nd obtuse marginal artery had 85% ostial lesion with left collaterals and a proximally occluded RCA. Patient of Dr. Tino Mora. Hyperlipidemia Hypertension Hypothyroidism Ischemic cardiomyopathy Echocardiogram on 05/28/2019 showed normal LV wall thickness, moderate enlargement of the LV cavity, moderate global LV systolic dysfunction, impaired diastolic relaxation grade 1, estimated EF of 35% and a measured EF of 38%. Multiple wall motion abnormalities noted. She has continued to refuse a defibrillator. Tobacco dependence White matter abnormality on MRI of brain (10/28/16) Extensive white matter disease, probably quiescent multiple sclerosis. Surgical History Surgical History (Updated 02/08/21 @ 20:47 by Beverly Murry PA-C) History of cardiac catheterization (11/23/16) Severe triple-vessel coronary artery disease with severely reduced LV systolic function and an EF of 25% and large anteroapical aneurysm. Hx of cholecystectomy Family History Family History (Updated 02/08/21 @ 20:48 by Beverly Murry PA-C) Father Liver cancer Mother Chronic obstructive pulmonary disease Sibling Acute myocardial infarction Other Family history of primary malignant neoplasm of liver Social History Social History (Updated 02/08/21 @ 20:49 by Beverly Murry P
[2021-02-08] MEDS: SODIUM CHLORIDE 0.9% IV 1,000 ML 999 ML IV CONT ×2 (13:00→15:28)
[2021-02-08 13:14] LABS: Basophils Percent Auto 0.3 % (0.2-1.2); Eosinophils Absolute Auto 0.1 K/mm3 (0-0.3); Eosinophils Percent Auto 0.3 % (0-4.4); Hematocrit 29.7 % (37.0-47.0); Immature Granulocyte Absolute 0.24 K/mm3 (0.00-0.031); Immature Granulocyte Percent A 1.6 % (0-0.5); Lymphocytes Absolute Auto 1.45 K/mm3 (0.9-3.2); Lymphocytes Percent Auto 9.5 % (18.3-44.2); Mean Corpuscular HGB Conc 33.7 g/dl (32-36); Mean Corpuscular Hemoglobin 29.2 pg (26-34); Mean Corpuscular Volume 86.6 fl (80-100); Mean Platelet Volume 8.1 fl (7.4-10.4); Monocytes Absolute Auto 1.2 K/mm3 (0.1-0.6); Monocytes Percent Auto 7.7 % (2.6-8.5); Neutrophils Absolute Auto 12.4 K/mm3 (1.3-6.7); Neutrophils Percent Auto 80.6 % (45.5-73.1); Platelet Count Result 556 k/mm3 (150-375); Red Blood Count 3.43 M/mm3 (4.2-5.4); Red Cell Distribution Width 17.1 % (11.5-14.5); White Blood Count 15.3 K/mm3 (4.5-10.0)
[2021-02-08 13:22] LABS: Lactic Acid Reflex 2.2 mmol/L (0.7-2.1)
[2021-02-08 13:23] LABS: Prothrombin Time 95.9 Seconds (11.1-14.7)
[2021-02-08 13:25] LABS: Alanine Aminotransferase 44 U/L (4-35); Albumin Level 3.4 g/dL (3.5-5.1); Alkaline Phosphatase 134 U/L (38-126); Anion Gap 8 mmol/L (8-16); Aspartate Amino Transferase 48 U/L (14-36); Bilirubin,Total 0.9 mg/dL (0.2-1.3); Blood Urea Nitrogen 5 mg/dL (7-17); Calcium 8.9 mg/dL (8.4-10.2); Carbon Dioxide 24 mmol/L (22-30); Chloride 87 mmol/L (98-107); Estimated CRCL calculation 87 ml/min; Estimated Glomerular Filt Rate > 60; Glucose 110 mg/dL (65-105); Sodium 119 mmol/L (137-145)
[2021-02-08 13:31] LABS: Partial Thromboplastin Time 171.1 SECONDS (22.3-36.8)
--- NOTE | 2021-02-08 13:45 | PC.NURSE ---
Patient aware of the need for a urine specimen and still cannot urinate. Patient agrees to straight catheter to obtain specimen.
[2021-02-08 14:27] LABS: Add Urine Microscopic? YES; Appearance Urine Cloudy (Clear); Bacteria Urine Trace /hpf; Bilirubin Urine Negative (Negative); Blood Urine 3+ (Negative); Color Urine Amber (Yellow); Glucose Urine UA Negative (Negative); Ketones Urine Negative (Negative); Leukocyte Esterase Ur Negative LEU/UL (Negative); Mucus Urine Rare /lpf; Nitrate Urine Negative (Negative); Protein Urine 2+ mg/dL (Negative); RBC Urine >75 /hpf (0-2); Specific Grav Ur 1.011 (1.001-1.035); WBC Urine 21-30 /hpf
[2021-02-08 15:26] LABS: CRP 6.6 mg/dL (<1.0)
[2021-02-08 15:39] LABS: Creatine Kinase 135 U/L (30-135)
[2021-02-08 15:42] LABS: Erythrocyte Sedimentation Rate 90 mm/hr (0-20)
[2021-02-08] MEDS: PHYTONADIONE ADULT INJ 10 MG in DEXTROSE 5% IN WATER 50 ML 100 MG IVPB (15:57)
[2021-02-08 16:09] LABS: Reflex Lactic Acid Yes or No Add Lactic
--- NOTE | 2021-02-08 16:15 | PM.IMHP ---
H&P: HPI History of Present Illness Date/Time: 02/08/21 16:15 Chief Complaint: Elevated INR. Narrative: This is a 60-year-old female smoker with history of stroke on long-term warfarin, combined systolic and diastolic congestive heart failure, hypertension, and hyperlipidemia who presented to the emergency department earlier today after she received a call from Dr. Mora is office that her INR was 12.4 and that she needed to come to the ER. She is a very poor historian and unfortunately family members are not around at this time and thus some of the following is supplemented via a review of her electronic medical records as well as discussions with the nursing staff. She lives at home with her and some of their children and up until 3 weeks ago she was up and ambulating and caring for herself. Since that time she has stayed on the main floor of their home and spends a majority of her time in the recliner, really only getting up on occasion to use the restroom, with the help of family members. She has a difficult time telling me why she has been the recliner aside from the fact that she is afraid that she is going to fall again. It looks like she was seen in the emergency department at end of November with a fall and she was transferred to [facility] after CT showed extensive right posterior flank and right perirectal soft tissue infiltration/fluid. She was observed overnight and discharged home the next day. She has not had any fall since that time. She denies a physical inability to get up, specifically denying weakness. Family members have her encouraged her to come in for evaluation though she has refused until today. I am not sure how she made it out of the house to have her INR drawn on the given the shape she is in today. She has a sacral decubitus ulcer with bruising and maceration on the buttocks and upper thighs and dark matter caked between her toes and under her nails that she says is due to dirt. She seems confused and when questioned she does admit that she has felt a bit confused over the last several days, mainly at night time. Her appetite has been poor with mild nausea but no vomiting. She denies headache, auditory and visual changes, focal weakness, paresthesias, fever, chills, sweats, back pain, abdominal pain, incontinence, diarrhea, and dysuria. The patient says that her family members have been giving her her medications and is impossible for her to have taken more than prescribed. Of note, a brain MRI done in October 2016 when the patient was admitted for stroke showed extensive white matter disease, probably quiescent multiple sclerosis, but I do not see that she has had any follow-up for this. Review of Systems Review of Systems: Narrative: Twelve systems were reviewed with pertinent positives and negatives as per HPI. Somewhat limited as she is not a very good historian although she is alert and oriented x4. She does deny fever, chills, and sweats. No auditory or visual changes. She denies dysphagia. No recent cold or flu symptoms. She denies chest pain and pleuritic pain. No cough or shortness of breath. She denies vomiting. She denies epistaxis but it appears that she has some dry blood under her nose. She denies hematuria, hematochezia, and melena. No NSAID use. She does not use drugs or alcohol. Except as documented, all other systems were reviewed and are negative. [facility] Past Medical History Medical History Abnormal stress test (10/31/16) Large area of severe infarct involving left ventricular apex, all apical segments, and mid inferior and mid inferolateral segments with apical akinesis and global hypokinesis with left ventricular ejection fraction measuring 35%. Cerebrovascular accident (10/2016) Punctate right parietal focus on MRI on 10/28/2016 Likely cardioembolic in etiology though no thrombus seen at that point in time. Coronary artery disease Cardiac catheterization
--- NOTE | 2021-02-08 16:50 | PC.NURSE ---
Patient's O2 ranging from 85%-90%. Patient placed on 4L via NC.
--- NOTE | 2021-02-08 17:39 | ADMGEN ---
This patient, Denise Steen, was admitted to IMU Room 206-02. Patient/family oriented to hospital policies and general routines including ID bracelet, bed and alarms, visiting hours, pain management, procedures, bathroom and other care routines, personal items, smoking policy, room service/diet, and visiting hours. Information on how to activate the Rapid Response Team has been discussed. Patient/Family are encouraged to report perceived risks to care and to ask questions if they do not understand what they are told or what they should do.
[2021-02-08 18:12] LABS: Anion Gap 3 mmol/L (8-16); Blood Urea Nitrogen 5 mg/dL (7-17); Calcium 8.4 mg/dL (8.4-10.2); Carbon Dioxide 26 mmol/L (22-30); Chloride 93 mmol/L (98-107); Estimated CRCL calculation 88 ml/min; Estimated Glomerular Filt Rate > 60; Glucose 100 mg/dL (65-105); Potassium 3.7 mmol/L (3.4-5.0); Sodium 122 mmol/L (137-145)
[2021-02-08 18:21] LABS: NT Pro B Type Natriuretic Pept 493 pg/mL (5-100)
[2021-02-08 19:46] LABS: Free T4 Free Thyroxine Reflex 0.78 ng/dL (0.78-2.19)
[2021-02-08 20:46] LABS: Total Triiodothyronine (T3) 0.49 NG/ML (0.97-1.69)
[2021-02-08 21:30] LABS: Iron 28 ug/dL (37-170)
[2021-02-08 21:40] LABS: Percent Iron Saturation 11 % (20-50)
[2021-02-08 22:23] LABS: Hematocrit 26.3 % (37.0-47.0); Hemoglobin 8.8 g/dL (12.0-15.0)
[2021-02-08 22:32] LABS: Alanine Aminotransferase 38 U/L (4-35); Albumin Level 2.8 g/dL (3.5-5.1); Alkaline Phosphatase 103 U/L (38-126); Aspartate Amino Transferase 43 U/L (14-36); Bilirubin,Total 1.1 mg/dL (0.2-1.3); Magnesium 1.8 mg/dL (1.6-2.3); Sodium 122 mmol/L (137-145)
[2021-02-08 22:38] LABS: Folic Acid 7.2 ng/mL (2.76->20)
[2021-02-08] MEDS: SODIUM CHLORIDE 0.9% IV 250 ML 30 ML IV CONT (23:05)
[2021-02-09] VITALS (17 sets, daily range): BP systolic 108–125; BP diastolic 52–72; PULSE 76–116; RESP 14–16; TEMP 35.7–36.8; O2SAT 95–99; BMI 31.5; BMI 10.0
[2021-02-09] MEDS: SODIUM CHLORIDE 0.9% IV 1,000 ML 75 ML IV CONT ×2 (02:46→17:01)
[2021-02-09 03:02] LABS: Sodium 124 mmol/L (137-145)
--- NOTE | 2021-02-09 03:15 | PC.NURSE ---
per patient request marsha hands soaked in warm/soapy water; nails cleaned and trimmed. They look so much better - thank you.
[2021-02-09] MEDS: LEVOTHYROXINE SODIUM 75 MCG TABLET PO (06:06)
[2021-02-09 06:32] LABS: Basophils Percent Auto 0.4 % (0.2-1.2); Eosinophils Absolute Auto 0.1 K/mm3 (0-0.3); Eosinophils Percent Auto 0.6 % (0-4.4); Hematocrit 25.4 % (37.0-47.0); Hemoglobin 8.6 g/dL (12.0-15.0); Immature Granulocyte Absolute 0.18 K/mm3 (0.00-0.031); Immature Granulocyte Percent A 1.6 % (0-0.5); Lymphocytes Absolute Auto 1.58 K/mm3 (0.9-3.2); Mean Corpuscular HGB Conc 33.9 g/dl (32-36); Mean Corpuscular Hemoglobin 28.9 pg (26-34); Mean Corpuscular Volume 85.2 fl (80-100); Monocytes Absolute Auto 1.1 K/mm3 (0.1-0.6); Neutrophils Absolute Auto 8.3 K/mm3 (1.3-6.7); Neutrophils Percent Auto 73.4 % (45.5-73.1); Platelet Count Result 501 k/mm3 (150-375); Red Blood Count 2.98 M/mm3 (4.2-5.4); Red Cell Distribution Width 16.8 % (11.5-14.5); White Blood Count 11.3 K/mm3 (4.5-10.0)
[2021-02-09 06:49] LABS: Alanine Aminotransferase 37 U/L (4-35); Albumin Level 3.1 g/dL (3.5-5.1); Alkaline Phosphatase 109 U/L (38-126); Anion Gap 4 mmol/L (8-16); Aspartate Amino Transferase 53 U/L (14-36); Bilirubin,Total 1.1 mg/dL (0.2-1.3); Blood Urea Nitrogen 2 mg/dL (7-17); Calcium 8.4 mg/dL (8.4-10.2); Carbon Dioxide 25 mmol/L (22-30); Chloride 95 mmol/L (98-107); Estimated CRCL calculation 88 ml/min; Estimated Glomerular Filt Rate > 60; Glucose 89 mg/dL (65-105); Magnesium 1.8 mg/dL (1.6-2.3); Potassium 3.8 mmol/L (3.4-5.0); Sodium 124 mmol/L (137-145)
--- NOTE | 2021-02-09 06:53 | PC.NURSE ---
patient minimally incontinent throughout shift. Bladder scan performed result [id number] remaining in the bladder. Telephoned Dr. Chavez - order received to insert urinary catheter for accurate I/O. Immediate return of dark, foul smelling urine with dark sediment.
[2021-02-09 07:38] LABS: Creatinine Urine 71.2 mg/dL
[2021-02-09 07:48] LABS: Sodium Urine Random 7 meq/L
[2021-02-09 08:10] LABS: INR 1.3
[2021-02-09 08:11] LABS: Partial Thromboplastin Time 35.4 SECONDS (22.3-36.8)
[2021-02-09] MEDS: METOPROLOL SUCCINATE EXT REL 50 MG TABCR PO (09:29)
[2021-02-09] MEDS: ATORVASTATIN 40 MG TABLET 80 MG PO (09:29)
--- NOTE | 2021-02-09 09:40 | PM.CNGS ---
Assessment and Plan Assessment and plan (1) Decubitus ulcer of sacral region: Code(s): L89.159 - Pressure ulcer of sacral region, unspecified stage Status: Acute Assessment and Plan: Stage II sacral decubitus ulcer with superficial maceration and excoriation of surrounding skin extending anteriorly towards her vagina, bilateral groin, and left posterior thigh. This is likely a multifactorial problem with her recent immobility, poor nutrition, and poor hygiene. This all appears to be superficial with no indication for surgical debridement at this time. We will initiate local wound care with triple care antifungal barrier cream and I have asked the nurse to thoroughly wash the patient's skin and wounds. Thank you for allowing us to see the patient in consultation. (2) Supratherapeutic INR: Code(s): R79.1 - Abnormal coagulation profile Status: Acute Assessment and Plan: INR 12.4 as an outpatient and rechecked on admission with INR of 13. Received vitamin K and 1 unit FFP, with INR down to 1.3. (3) Abnormal computed tomography of abdomen and pelvis: Code(s): R93.5 - Abnormal findings on diagnostic imaging of other abdominal regions, including retroperitoneum Status: Acute Assessment and Plan: CT scan suggests possible hematoma of the right psoas muscle and left obturator internus muscle with an INR of 13 on admission. She has received vitamin K and 1 unit of FFP with her repeat INR this morning at 1.3. Hemoglobin dropped from 10 to 8.8 but remains 8.6 this morning. Hemodynamically stable. Continue to monitor H/H. (4) Normocytic anemia: Code(s): D64.9 - Anemia, unspecified Status: Acute Assessment and Plan: Monitor labs. See above. (5) Hyponatremia: Code(s): E87.1 - Hypo-osmolality and hyponatremia Status: Acute Assessment and Plan: Sodium 119 on admission and slowly trending up with cautious IV fluid rehydration. Trend labs. Management per Hospitalist. (6) Ischemic cardiomyopathy: Code(s): I25.5 - Ischemic cardiomyopathy Status: Chronic (7) Coronary artery disease: Code(s): I25.10 - Atherosclerotic heart disease of [place] coronary artery without angina pectoris Status: Chronic (8) White matter abnormality on MRI of brain: Onset Date: 10/28/16 Code(s): R90.82 - White matter disease, unspecified Status: Chronic Assessment and Plan: Seen on previous brain MRI in October 2016. Neurology was consulted. Additional Plan I have discussed the patient's case and plan of care with Dr. Garza. History of Present Illness Consult details Consult date: 02/09/21 Reason for consult: wound care (Sacral decubitus ulcer) Requesting physician: Cindy Rodriguez MD Narrative: This is a 60-year-old female with a history of stroke and coronary artery disease on long-term anticoagulation, congestive heart failure, and hypertension, who presented to the emergency department yesterday as directed by her commercial property administrator for outpatient lab results of an INR of 12.4. She is alert and oriented x3 today, but apparently was more confused initially on admission. She is able to tell me that she has been more sedentary at home over the past 1-2 months. She reports spending most of her time in the recliner because she is scared of falling. She knows that she has a sacral wound but is unsure how long it has been there. No family is at the bedside and she is a poor historian, so her history has been compiled from her electronic medical record and questioning her as well. She reports that she has not been getting up to use the restroom recently and has been using depends. Her daughter then help clean her up at the sink after urinating or moving her bowels. She reports only taking sponge baths for the past few weeks as well and cannot tell me how often those are done. She denies really leaving her recliner much at all during the day due to fear
[2021-02-09 09:53] LABS: Sodium 124 mmol/L (137-145)
[2021-02-09 11:56] LABS: Sodium 124 mmol/L (137-145)
--- NOTE | 2021-02-09 12:30 | WPDNEURCNPN ---
Assessment and Plan Additional Plan abnormal coagulation profile with the treatment as already been ordered CT of the abdomen documented new enlargement and central low attenuation right psoas muscle consistent with a hematoma versus myositis or abscess in addition to the new enlargement the left obturator internus muscle likely hematoma bilateral nonobstructing renal stones with bladder stones as well and supra umbilical ventral hernia and subcutaneous fat stranding overlying the sacrum consistent with the inflammation or scattering likely CT scan of the head is negative for any epidural or subdural bleed and chest x-ray is also negative except minimal left basilar airspace opacity consistent with atelectasis versus pneumonia and plan is to continue medical care as such considering the intra-abdominal bleed lower extremities will be observe for any progressive weakness of the lower extremities Consult date: 02/09/21 Time Seen: 11:30 HPI: Denise Steen is a 60 year old female admitted to the hospital with the complaints of elevated INR in addition to the comorbid conditions of 1. Smoker 2. Previous stroke 3. Long-term warfarin therapy 4. Congestive heart failure 5. Hypertension 6. Hyperlipidemia she was brought to the hospital because she receives the core former physician her INR was 12.4 she lives at home with her she was up and about ambulating and caring for herself is spent most of the time in her recliner and occasionally getting up to use the restroom she was seen in the emergency room at the end of November with a fall and was transferred to [facility] after CT scan revealed extensive right posterior flank a right perirectal soft tissue infiltration of the fluid she has not had any falls since that time she had diffuse up until the day of admission to the hospital to come to the hospital he was also noted to have a sacral decubitus she also complained of some confusion over the last several days but she complained of no headache no visual or auditory difficulties she has had an MRI of the brain in October of 2016 when she was admitted for the stroke and was documented to have extensive white matter disease and questionable multiple sclerosis but she had no follow up with any physician her past history as mentioned before consistent with the his stroke, coronary artery disease, hypertension, and ischemic cardiomyopathy with tobacco dependence and white matter abnormalities on MRI of the brain in October of 2016 she has a 47 is smoking pack years history and current everyday smoker though no alcohol intake Review of Systems Review of Systems: All systems reviewed & are unremarkable except as noted in HPI and below PMFSH Past Medical History Medical History Abnormal stress test (10/31/16) Large area of severe infarct involving left ventricular apex, all apical segments, and mid inferior and mid inferolateral segments with apical akinesis and global hypokinesis with left ventricular ejection fraction measuring 35%. Cerebrovascular accident (10/2016) Punctate right parietal focus on MRI on 10/28/2016 Likely cardioembolic in etiology though no thrombus seen at that point in time. Coronary artery disease Cardiac catheterization on 11/23/2016 showed proximal occlusion of the LAD with left collaterals involving the distal LAD, 1st diagonal artery had 90% ostial stenosis, 70% ostial on when, mid circumflex lesion that was 80% and then a chronic total occlusion, 2nd obtuse marginal artery had 85% ostial lesion with left collaterals and a proximally occluded RCA. Patient of Dr. Tino Mora. Hyperlipidemia Hypertension Hypothyroidism Ischemic cardiomyopathy Echocardiogram on 05/28/2019 showed normal LV wall thickness, moderate enlargement of the LV cavity, moderate global LV systolic dysfunction, impaired diastolic relaxation grade 1, estimated EF of 35% and a measured EF of 38%. Multiple wall motion abnormalities noted. S
--- NOTE | 2021-02-09 13:04 | PCNSR ---
On 02/09/21, the student, Alison Morel, provided care and completed [facility] documentation on this patient. I have reviewed the student's documentation and agree with the findings.
[2021-02-09 15:32] LABS: Sodium 125 mmol/L (137-145)
--- NOTE | 2021-02-09 16:26 | PM.IMPN ---
Progress Note: A&P Assessment and Plan (1) Supratherapeutic INR: Code(s): R79.1 - Abnormal coagulation profile Status: Acute Assessment and Plan: INR elevated at 12.4. Unclear etiology Status post vitamin K given in the ER also given 1 unit of FFP given possible psoas and left obturator internus muscle hematoma INR today is 1.3 Discussed other anticoagulant option with the patient such as Xarelto or Eliquis Patient wants to stick to warfarin She normally takes 5 mg Monday to and 5.5 mg on Monday Will monitor her hemoglobin in the morning and will start her warfarin slowly She is taking warfarin for atrial fibrillation (2) Normocytic anemia: Code(s): D64.9 - Anemia, unspecified Status: Acute Assessment and Plan: Likely from large hematoma from fall in November and hematomas noted on CT. Check iron studies and B12/folate for completeness sake. Monitor. will recheck her hemoglobin again in the morning admission hemoglobin at 10 down to 8.6 this morning baseline hemoglobin of 12 (3) Abnormal computed tomography of abdomen and pelvis: Code(s): R93.5 - Abnormal findings on diagnostic imaging of other abdominal regions, including retroperitoneum Status: Acute Assessment and Plan: CT of the abdomen pelvis shows findings of hematoma versus myositis/ abscess in the right psoas muscle as well as enlargement of the left obturator internus muscle which is felt to be a hematoma. While she does have an elevated white blood cell count she has not had a fever and gives no history to suggest significant infection at this time thus will hold on antibiotics. Surgery consulted for her decubitus wound as it may need some debridement. Wound nurse has also been consulted. Blood cultures have been obtained. is started on Zosyn from the ER Will continue that for now WBC count slightly better today compared to yesterday at 15,000 (4) Decubitus ulcer of sacral region: Code(s): L89.159 - Pressure ulcer of sacral region, unspecified stage Status: Acute Assessment and Plan: Surgery consulted for possible debridement. Wound nurse also consulted. no debridement needed per surgery (5) Hyponatremia: Code(s): E87.1 - Hypo-osmolality and hyponatremia Status: Acute Assessment and Plan: Patient has pretty profound hyponatremia with a sodium of 119. Chloride is also a bit decreased and she appears dry on exam thus will start cautious IV fluid rehydration with close monitoring of sodium levels. Check urine and serum osmolalities, TSH, and fractional excretion of sodium. (6) Elevated LFTs: Code(s): R79.89 - Other specified abnormal findings of blood chemistry Status: Acute Assessment and Plan: CVA on admission down to 119. Baseline sodium 133 last month On IV fluids with normal saline Sodium slowly going up to 125 this morning Recheck sodium level in the morning. TSH low but is better than in November continue levothyroxine (7) Ischemic cardiomyopathy: Code(s): I25.5 - Ischemic cardiomyopathy Status: Chronic Assessment and Plan: Clinically compensated. Monitor volume status closely while cautiously hydrating. (8) Coronary artery disease: Code(s): I25.10 - Atherosclerotic heart disease of [place] coronary artery without angina pectoris Status: Chronic Assessment and Plan: No acute issues. Continue statin and beta-miguel. (9) Hypertension: Code(s): I10 - Essential (primary) hypertension Status: Chronic Assessment and Plan: Blood pressures were reviewed and they have been running soft. Lisinopril has been placed on hold. Continue metoprolol with parameters. (10) Hypothyroidism: Code(s): E03.9 - Hypothyroidism, unspecified Status: Acute Assessment and Plan: Continue levothyroxine and TSH 17 improved from 99 in November (11) Jeanne clifford
--- NOTE | 2021-02-09 18:20 | PC.NURSE ---
This patient, Denise Steen, was transferred to [[id number]] on 02/09/21 at 1820. Personal belongings sent with patient. Report given to [BENTON HERNANDEZ]. Appropriate documentation sent with patient.
--- NOTE | 2021-02-09 18:39 | PC.NURSE ---
Patient transferred to room 311 from 206. Patient alert/oriented to person and place. Poor historian as to why she is in hospital. #20 saline lock in right forearm with Normal saline infusing at 75cc/hr. patient tolerating well. Lungs diminished throughout. Patient is on room air. Patient doent roll the best and no open areas noted to her back but Buttocks macerated and wound nurse is aware and creams ordered for buttocks. Treviño draining clear dark yellow urine. Call light within reach. Will continue to monitor.
[2021-02-09 21:36] LABS: Glucose Point of Care 121 mg/dl (65-105)
[2021-02-10 05:26] VITALS: BP 104/59; PULSE 82; RESP 18; TEMP 36.1; O2SAT 96
[2021-02-10 06:18] LABS: Basophils Absolute Auto 0.1 K/mm3 (0.0-0.1); Basophils Percent Auto 0.4 % (0.2-1.2); Eosinophils Percent Auto 0.2 % (0-4.4); Hematocrit 24.9 % (37.0-47.0); Hemoglobin 8.3 g/dL (12.0-15.0); Immature Granulocyte Absolute 0.17 K/mm3 (0.00-0.031); Immature Granulocyte Percent A 1.3 % (0-0.5); Lymphocytes Absolute Auto 1.25 K/mm3 (0.9-3.2); Lymphocytes Percent Auto 9.8 % (18.3-44.2); Mean Corpuscular HGB Conc 33.3 g/dl (32-36); Mean Corpuscular Hemoglobin 29.3 pg (26-34); Monocytes Absolute Auto 1.5 K/mm3 (0.1-0.6); Monocytes Percent Auto 11.5 % (2.6-8.5); Neutrophils Absolute Auto 9.8 K/mm3 (1.3-6.7); Neutrophils Percent Auto 76.8 % (45.5-73.1); Platelet Count Result 478 k/mm3 (150-375); Red Blood Count 2.83 M/mm3 (4.2-5.4); Red Cell Distribution Width 17.4 % (11.5-14.5); White Blood Count 12.7 K/mm3 (4.5-10.0)
[2021-02-10] MEDS: SODIUM CHLORIDE 0.9% IV 1,000 ML 75 ML IV CONT (06:22)
[2021-02-10 06:33] LABS: Alanine Aminotransferase 34 U/L (4-35); Albumin Level 2.7 g/dL (3.5-5.1); Alkaline Phosphatase 101 U/L (38-126); Anion Gap 3 mmol/L (8-16); Aspartate Amino Transferase 48 U/L (14-36); Bilirubin,Total 1.1 mg/dL (0.2-1.3); Blood Urea Nitrogen 3 mg/dL (7-17); Calcium 8.2 mg/dL (8.4-10.2); Carbon Dioxide 24 mmol/L (22-30); Chloride 98 mmol/L (98-107); Estimated CRCL calculation 90 ml/min; Estimated Glomerular Filt Rate > 60; Glucose 88 mg/dL (65-105); Potassium 3.3 mmol/L (3.4-5.0); Sodium 125 mmol/L (137-145)
[2021-02-10] MEDS: LEVOTHYROXINE SODIUM 75 MCG TABLET PO (06:41)
[2021-02-10 07:02] LABS: Glucose Point of Care 90 mg/dl (65-105)
[2021-02-10] MEDS: ATORVASTATIN 40 MG TABLET 80 MG PO (08:52)
[2021-02-10 10:19] VITALS: BMI 10.0
[2021-02-10 10:44] VITALS: BP 110/56; PULSE 79
[2021-02-10] MEDS: METOPROLOL SUCCINATE EXT REL 50 MG TABCR PO (10:44)
[2021-02-10] MEDS: POTASSIUM CHLORIDE 20 MEQ PACKET (FOR LIQUID) 40 MEQ PO (11:11)
[2021-02-10 12:39] LABS: INR 1.3; Prothrombin Time 16.6 Seconds (11.1-14.7)
[2021-02-10 13:52] VITALS: BP 100/59; PULSE 77; RESP 16; TEMP 37.1; O2SAT 98
--- NOTE | 2021-02-10 15:04 | PM.IMPN ---
Progress Note: A&P Assessment and Plan (1) Supratherapeutic INR: Code(s): R79.1 - Abnormal coagulation profile Status: Acute Assessment and Plan: INR elevated at 12.4. Unclear etiology Status post vitamin K given in the ER also given 1 unit of FFP given possible psoas and left obturator internus muscle hematoma INR yesterday is 1.3 Remains low today as well Discussed other anticoagulant option with the patient such as Xarelto or Eliquis Patient wants to stick to warfarin She normally takes 5 mg Monday to and 5.5 mg on Monday Will monitor her hemoglobin in the morning and will start her warfarin slowly She is taking warfarin for atrial fibrillation she currently remains in sinus rhythm Her hemoglobin level has lower further today 02/10/2021 to 8.3 some of which could be hemodilution will stop her fluid and reassess her hemoglobin in the morning tomorrow will continue to hold anticoagulation at this time . She understands the risks of being off anticoagulation as well as understands the benefits of being off anticoagulation at this time due to hematoma (2) Normocytic anemia: Code(s): D64.9 - Anemia, unspecified Status: Acute Assessment and Plan: Likely from large hematoma from fall in November and hematomas noted on CT. Check iron studies and B12/folate for completeness sake. Monitor. will recheck her hemoglobin again in the morning admission hemoglobin at 10 down to 8.6 this morning baseline hemoglobin of 12 Hemoglobin 8.3 recheck in the morning acute blood loss anemia (3) Abnormal computed tomography of abdomen and pelvis: Code(s): R93.5 - Abnormal findings on diagnostic imaging of other abdominal regions, including retroperitoneum Status: Acute Assessment and Plan: CT of the abdomen pelvis shows findings of hematoma versus myositis/ abscess in the right psoas muscle as well as enlargement of the left obturator internus muscle which is felt to be a hematoma. While she does have an elevated white blood cell count she has not had a fever and gives no history to suggest significant infection at this time thus will hold on antibiotics. Surgery consulted for her decubitus wound as it may need some debridement. Wound nurse has also been consulted. Blood cultures have been obtained. is started on Zosyn from the ER Will continue that for now WBC count slightly better today compared to yesterday at 15,000 Continue Zosyn for now urine culture has been no growth (4) Decubitus ulcer of sacral region: Code(s): L89.159 - Pressure ulcer of sacral region, unspecified stage Status: Acute Assessment and Plan: Surgery consulted for possible debridement. Wound nurse also consulted. no debridement needed per surgery (5) Hyponatremia: Code(s): E87.1 - Hypo-osmolality and hyponatremia Status: Acute Assessment and Plan: Patient has pretty profound hyponatremia with a sodium of 119. Chloride is also a bit decreased and she appears dry on exam thus will start cautious IV fluid rehydration with close monitoring of sodium levels. Check urine and serum osmolalities, TSH, and fractional excretion of sodium. Sodium level stable today urine sodium is 7 suggestive of prerenal cause. Continue to monitor sodium level (6) Elevated LFTs: Code(s): R79.89 - Other specified abnormal findings of blood chemistry Status: Acute Assessment and Plan: CVA on admission down to 119. Baseline sodium 133 last month On IV fluids with normal saline Sodium slowly going up to 125 this morning Recheck sodium level in the morning. TSH low but is better than in November continue levothyroxine (7) Ischemic cardiomyopathy: Code(s): I25.5 - Ischemic cardiomyopathy Status: Chronic Assessment and Plan: Clinically compensated. Monitor volume status closely while cautiously hydrating. (8) Coronary artery disease: Code(
[2021-02-10 21:05] VITALS: BP 97/57; PULSE 82; RESP 18; TEMP 36.6; O2SAT 97
[2021-02-11] VITALS: BP 100/55; PULSE 78; RESP 18; TEMP 36.3; O2SAT 95
[2021-02-11 04:51] VITALS: BP 104/58; PULSE 87; RESP 18; TEMP 36.2; O2SAT 96
[2021-02-11] MEDS: LEVOTHYROXINE SODIUM 75 MCG TABLET PO (05:32)
[2021-02-11 06:19] LABS: Anion Gap 4 mmol/L (8-16); Calcium 7.9 mg/dL (8.4-10.2); Carbon Dioxide 26 mmol/L (22-30); Chloride 95 mmol/L (98-107); Estimated CRCL calculation 90 ml/min; Estimated Glomerular Filt Rate > 60; Glucose 88 mg/dL (65-105); Potassium 3.3 mmol/L (3.4-5.0); Sodium 125 mmol/L (137-145)
[2021-02-11 06:23] LABS: Basophils Absolute Auto 0.1 K/mm3 (0.0-0.1); Basophils Percent Auto 0.5 % (0.2-1.2); Eosinophils Absolute Auto 0.1 K/mm3 (0-0.3); Hematocrit 24.8 % (37.0-47.0); Hemoglobin 7.9 g/dL (12.0-15.0); Immature Granulocyte Absolute 0.15 K/mm3 (0.00-0.031); Immature Granulocyte Percent A 1.4 % (0-0.5); Lymphocytes Absolute Auto 1.46 K/mm3 (0.9-3.2); Lymphocytes Percent Auto 13.2 % (18.3-44.2); Mean Corpuscular HGB Conc 31.9 g/dl (32-36); Mean Corpuscular Hemoglobin 28.1 pg (26-34); Mean Corpuscular Volume 88.3 fl (80-100); Mean Platelet Volume 8.1 fl (7.4-10.4); Monocytes Absolute Auto 1.1 K/mm3 (0.1-0.6); Monocytes Percent Auto 9.5 % (2.6-8.5); Neutrophils Absolute Auto 8.3 K/mm3 (1.3-6.7); Neutrophils Percent Auto 74.4 % (45.5-73.1); Platelet Count Result 452 k/mm3 (150-375); Red Blood Count 2.81 M/mm3 (4.2-5.4); Red Cell Distribution Width 17.5 % (11.5-14.5); White Blood Count 11.1 K/mm3 (4.5-10.0)
[2021-02-11 06:34] LABS: Blood Urea Nitrogen < 2 mg/dL (7-17)
[2021-02-11] MEDS: POTASSIUM CHLORIDE 20 MEQ PACKET (FOR LIQUID) 40 MEQ PO (08:35)
[2021-02-11] MEDS: ATORVASTATIN 40 MG TABLET 80 MG PO (08:35)
[2021-02-11 08:36] VITALS: PULSE 78
[2021-02-11] MEDS: METOPROLOL SUCCINATE EXT REL 50 MG TABCR PO (08:36)
[2021-02-11 08:38] VITALS: BP 112/63
--- NOTE | 2021-02-11 11:07 | PCNFU ---
Nutrition Follow-Up Complete: Increased nutritional needs related to wound recovery as evidenced by a diagnosis of a sacral unstageable pressure ulcer. Goal: Have patient meet estimated nutritional needs. Patient is progressing towards goal. We will continue current goal. Pt current nutrition is Heart Healthy. Last recorded weight is 75.9 kg,up from 73.3 kg on admit. Bowel Motility:+BM reported 02/10 Labs Reviewed:Cr 0.5,Na 125,K 3.3,Hct 24.8,Hgb 7.9 Meds Noted:Toprol,Zosyn,Synthroid,Lipitor Additional Notes: Nutrition follow up. Patient seen today she stats to eating well. Oral Intake: about 50% of meals. Diet supplements had been Frozen Nutritional Treat,she would like to change to Ensure compact BID which will provide 220 kcals and 9 gms protein. Agree with diet orders. Will follow up in 5 days.
[2021-02-11 11:14] LABS: INR 1.3; Prothrombin Time 16.4 Seconds (11.1-14.7)
[2021-02-11 14:00] VITALS: BP 115/51; PULSE 78; RESP 16; TEMP 37.1; O2SAT 97
--- NOTE | 2021-02-11 15:22 | PM.IMPN ---
Progress Note: A&P Assessment and Plan (1) Supratherapeutic INR: Code(s): R79.1 - Abnormal coagulation profile Status: Acute Assessment and Plan: INR elevated at 12.4. Unclear etiology Status post vitamin K given in the ER also given 1 unit of FFP given possible psoas and left obturator internus muscle hematoma INR yesterday is 1.3 Remains low today as well Discussed other anticoagulant option with the patient such as Xarelto or Eliquis Patient wants to stick to warfarin She normally takes 5 mg Monday to and 5.5 mg on Monday Hemoglobin continues to drift down She is taking warfarin for atrial fibrillation she currently remains in sinus rhythm will continue to hold anticoagulation at this time . She understands the risks of being off anticoagulation as well as understands the benefits of being off anticoagulation at this time due to hematoma (2) Normocytic anemia: Code(s): D64.9 - Anemia, unspecified Status: Acute Assessment and Plan: Likely from large hematoma from fall in November and hematomas noted on CT. Check iron studies and B12/folate for completeness sake. Monitor. will recheck her hemoglobin again in the morning admission hemoglobin at 10 down to 8.6 this morning baseline hemoglobin of 12 Hemoglobin 8.3 continues to drift down acute blood loss anemia (3) Abnormal computed tomography of abdomen and pelvis: Code(s): R93.5 - Abnormal findings on diagnostic imaging of other abdominal regions, including retroperitoneum Status: Acute Assessment and Plan: CT of the abdomen pelvis shows findings of hematoma versus myositis/ abscess in the right psoas muscle as well as enlargement of the left obturator internus muscle which is felt to be a hematoma. While she does have an elevated white blood cell count she has not had a fever and gives no history to suggest significant infection at this time thus will hold on antibiotics. Surgery consulted for her decubitus wound as it may need some debridement. Wound nurse has also been consulted. Blood cultures have been obtained. is started on Zosyn from the ER Will continue that for now WBC count slightly better today compared to yesterday at 15,000 Continue Zosyn for now urine culture has been no growth. (4) Decubitus ulcer of sacral region: Code(s): L89.159 - Pressure ulcer of sacral region, unspecified stage Status: Acute Assessment and Plan: Surgery consulted for possible debridement. Wound nurse also consulted. no debridement needed per surgery (5) Hyponatremia: Code(s): E87.1 - Hypo-osmolality and hyponatremia Status: Acute Assessment and Plan: Patient has pretty profound hyponatremia with a sodium of 119. Chloride is also a bit decreased and she appears dry on exam thus will start cautious IV fluid rehydration with close monitoring of sodium levels. Check urine and serum osmolalities, TSH, and fractional excretion of sodium. Sodium level stable today urine sodium is 7 suggestive of prerenal cause. Continue to monitor sodium level (6) Elevated LFTs: Code(s): R79.89 - Other specified abnormal findings of blood chemistry Status: Acute Assessment and Plan: CVA on admission down to 119. Baseline sodium 133 last month On IV fluids with normal saline Sodium slowly going up to 125 this morning Recheck sodium level in the morning. TSH low but is better than in November continue levothyroxine (7) Ischemic cardiomyopathy: Code(s): I25.5 - Ischemic cardiomyopathy Status: Chronic Assessment and Plan: Clinically compensated. Monitor volume status closely while cautiously hydrating. (8) Coronary artery disease: Code(s): I25.10 - Atherosclerotic heart disease of [place] coronary artery without angina pectoris Status: Chronic Assessment and Plan: No acute issues. Continue statin and beta-miguel. (9) Hyp
[2021-02-12] VITALS: BP 107/63; PULSE 80; RESP 18; TEMP 36.6; O2SAT 97
[2021-02-12 00:14] LABS: Osmolality, Urine 320 mOsm/kg (50-1200)
[2021-02-12] MEDS: LEVOTHYROXINE SODIUM 75 MCG TABLET PO (06:05)
[2021-02-12 06:42] LABS: Basophils Absolute Auto 0.1 K/mm3 (0.0-0.1); Basophils Percent Auto 0.5 % (0.2-1.2); Eosinophils Absolute Auto 0.1 K/mm3 (0-0.3); Eosinophils Percent Auto 0.6 % (0-4.4); Hematocrit 23.9 % (37.0-47.0); Hemoglobin 8.1 g/dL (12.0-15.0); Immature Granulocyte Absolute 0.12 K/mm3 (0.00-0.031); Immature Granulocyte Percent A 1.1 % (0-0.5); Lymphocytes Absolute Auto 1.66 K/mm3 (0.9-3.2); Lymphocytes Percent Auto 15.2 % (18.3-44.2); Mean Corpuscular HGB Conc 33.9 g/dl (32-36); Mean Corpuscular Hemoglobin 29.1 pg (26-34); Mean Platelet Volume 8.3 fl (7.4-10.4); Neutrophils Percent Auto 73.6 % (45.5-73.1); Platelet Count Result 483 k/mm3 (150-375); Red Blood Count 2.78 M/mm3 (4.2-5.4); Red Cell Distribution Width 17.6 % (11.5-14.5); White Blood Count 10.9 K/mm3 (4.5-10.0)
[2021-02-12 06:51] LABS: Anion Gap 4 mmol/L (8-16); Calcium 8.1 mg/dL (8.4-10.2); Carbon Dioxide 24 mmol/L (22-30); Chloride 93 mmol/L (98-107); Estimated CRCL calculation 109 ml/min; Estimated Glomerular Filt Rate > 60; Glucose 86 mg/dL (65-105); Potassium 3.8 mmol/L (3.4-5.0); Sodium 121 mmol/L (137-145)
[2021-02-12 07:36] LABS: Blood Urea Nitrogen < 2 mg/dL (7-17)
[2021-02-12 08:00] VITALS: BP 113/72; PULSE 82; RESP 18; TEMP 36.2; O2SAT 98
[2021-02-12 08:23] VITALS: PULSE 82
[2021-02-12] MEDS: ATORVASTATIN 40 MG TABLET 80 MG PO (08:23)
[2021-02-12] MEDS: METOPROLOL SUCCINATE EXT REL 50 MG TABCR PO (08:23)
[2021-02-12 08:45] LABS: Sodium 122 mmol/L (137-145)
--- NOTE | 2021-02-12 09:29 | WPDNEUROPN ---
Progress Note: A&P Additional Plan treatment continues as such no neurological change Review of Systems Review of Systems: All systems reviewed & are unremarkable except as noted in HPI and below Exam Narrative: Exam Narrative: continues to be awake alert critically ill appearing lady with neck is supple heart regular lungs clear abdomen soft but with normal bowel sounds and neurological examination essentially unchanged Objective Data Vital Signs Vital Signs: Vital Signs - 24 hr 02/11/21 14:00 02/12/21 00:00 02/12/21 08:00 Temperature 37.1 C 36.6 C 36.2 C L Pulse Rate 78 80 82 Respiratory Rate 16 18 18 Blood Pressure 115/51 L 107/63 113/72 Pulse Oximetry 97 97 98 02/12/21 08:23 Temperature Pulse Rate 82 Respiratory Rate Blood Pressure Pulse Oximetry Intake/Output Intake/Output: Intake & Output 02/09/21 02/10/21 02/11/21 02/12/21 23:59 23:59 23:59 23:59 Intake Total 1966 2390 1060 340 Output Total 950 1000 950 450 Balance 1016 1390 110 -110 Meds/Results Medications: Active Medications Generic Name Dose Route Start Last Admin Trade Name Freq PRN Reason Stop Dose Admin Atorvastatin Calcium 80 mg 02/09/21 09:00 02/12/21 08:23 Atorvastatin 40 Mg Tablet PO 80 mg DAILY REGINA Administration Piperacillin/Tazobactam/Dextrose 3.375 gm in 50 mls @ 100 mls/hr 02/08/21 20:00 02/12/21 09:01 Zosyn 3.375 Gm/D5w 50ml Pm IVPB Infused Q6H REGINA Infusion Levothyroxine Sodium 75 mcg 02/09/21 06:30 02/12/21 06:05 Levothyroxine Sodium 75 Mcg Tablet PO 75 mcg DAILY@0630 REGINA Administration Metoprolol Succinate 50 mg 02/09/21 09:00 02/12/21 08:23 Metoprolol Succinate Ext Rel 50 Mg Tabcr PO 50 mg DAILY REGINA Administration Miconazole Nitrate 1 applic 02/09/21 21:00 02/12/21 08:23 Miconazole 2% Antifungal Ointment 56 Gm TOPICAL 1 applic Q12HR REGINA Administration Ondansetron HCl 4 mg 02/08/21 16:13 Ondansetron Inj 4 Mg/2 Ml Vial IV PUSH Q4H PRN Nausea Radiology Results: ITS Impressions Chest X-Ray 02/08/21 13:10 IMPRESSION: 1. Minimal left basilar airspace opacity, consistent with atelectasis versus pneumonia. Head CT 02/08/21 13:14 IMPRESSION: 1. No acute intracranial abnormality. 2. Age related findings. Abdomen/Pelvis CT 02/08/21 14:38 IMPRESSION: 1. New enlargement and central low attenuation involving right psoas muscle, consistent with hematoma versus myositis/abscess. New enlargement of left obturator internus muscle, likely hematoma. 2. Bilateral nonobstructing kidney stones. Bladder stones. 3. Supraumbilical ventral hernia containing fat. 4. Subcutaneous fat stranding overlying the sacrum, consistent with inflammation/scarring. No evidence of osteomyelitis. Labs Labs: Laboratory Results - last 24 hr 02/09/21 02/11/21 02/12/21 06:44 10:41 05:54 WBC 10.9 H RBC 2.78 L Hgb 8.1 L Hct 23.9 L MCV 86.0 MCH 29.1 MCHC 33.9 RDW 17.6 H Plt Count 483 H MPV 8.3 Immature Gran % (Auto) 1.1 H Neut % (Auto) 73.6 H Lymph % (Auto) 15.2 L [place] % (Auto) 9.0 H Eos % (Auto) 0.6 Baso % (Auto) 0.5 Lymph # (Auto) 1.66 [place] # (Auto) 1.0 H Eos # (Auto) 0.1 Baso # (Auto) 0.1 Abs Immat Gran (auto) 0.12 H Absolute Neuts (auto) 8.0 H Absolute Nucleated RBC 0.0 Nucleated RBC % 0.0 PT 16.4 H INR 1.3 Sodium Potassium Chloride Carbon Dioxide Anion Gap BUN Creatinine Estim Creat Clear Calc Estimated GFR Glucose Calcium Urine Osmolality 320 02/12/21 02/12/21 05:54 08:31 WBC RBC Hgb Hct MCV MCH MCHC RDW Plt Count MPV Immature Gran % (Auto) Neut % (Auto) Lymph % (Auto) [place] % (Auto) Eos % (Auto) Baso % (Auto) Lymph # (Auto) [place] # (Auto) Eos # (Auto) Baso # (Auto) Abs Immat Gran (auto) Absolute Neuts (auto) Absolute Nucleated RBC Nucle
[2021-02-12 11:17] LABS: INR 1.3; Prothrombin Time 15.6 Seconds (11.1-14.7)
--- NOTE | 2021-02-12 14:45 | PM.IMPN ---
Progress Note: A&P Assessment and Plan (1) Supratherapeutic INR: Code(s): R79.1 - Abnormal coagulation profile Status: Acute Assessment and Plan: INR elevated at 12.4. Unclear etiology Status post vitamin K given in the ER also given 1 unit of FFP given possible psoas and left obturator internus muscle hematoma INR yesterday is 1.3 Remains low today as well Discussed other anticoagulant option with the patient such as Xarelto or Eliquis Patient wants to stick to warfarin She normally takes 5 mg Monday to and 5.5 mg on Monday Hemoglobin continues to drift down She is taking warfarin for atrial fibrillation she currently remains in sinus rhythm will continue to hold anticoagulation at this time . She understands the risks of being off anticoagulation as well as understands the benefits of being off anticoagulation at this time due to hematoma (2) Normocytic anemia: Code(s): D64.9 - Anemia, unspecified Status: Acute Assessment and Plan: Likely from large hematoma from fall in November and hematomas noted on CT. Check iron studies and B12/folate for completeness sake. Monitor. will recheck her hemoglobin again in the morning admission hemoglobin at 10 down to 8.6 this morning baseline hemoglobin of 12 Hemoglobin 8.3 continues to drift down. Hemoglobin is stable today. acute blood loss anemia (3) Abnormal computed tomography of abdomen and pelvis: Code(s): R93.5 - Abnormal findings on diagnostic imaging of other abdominal regions, including retroperitoneum Status: Acute Assessment and Plan: CT of the abdomen pelvis shows findings of hematoma versus myositis/ abscess in the right psoas muscle as well as enlargement of the left obturator internus muscle which is felt to be a hematoma. While she does have an elevated white blood cell count she has not had a fever and gives no history to suggest significant infection at this time thus will hold on antibiotics. Surgery consulted for her decubitus wound as it may need some debridement. Wound nurse has also been consulted. Blood cultures have been obtained. is started on Zosyn from the ER Will continue that for now WBC count slightly better today compared to yesterday at 15,000 Continue Zosyn for now urine culture has been no growth. (4) Decubitus ulcer of sacral region: Code(s): L89.159 - Pressure ulcer of sacral region, unspecified stage Status: Acute Assessment and Plan: Surgery consulted for possible debridement. Wound nurse also consulted. no debridement needed per surgery (5) Hyponatremia: Code(s): E87.1 - Hypo-osmolality and hyponatremia Status: Acute Assessment and Plan: Patient has pretty profound hyponatremia with a sodium of 119. Chloride is also a bit decreased and she appears dry on exam thus will start cautious IV fluid rehydration with close monitoring of sodium levels. Check urine and serum osmolalities, TSH, and fractional excretion of sodium. Sodium level stable today urine sodium is 7 suggestive of prerenal cause. Continue to monitor sodium level Sodium level dropped to 121 this morning repeat was 122 will add salt tablets. Looks euvolemic (6) Elevated LFTs: Code(s): R79.89 - Other specified abnormal findings of blood chemistry Status: Acute Assessment and Plan: CVA on admission down to 119. Baseline sodium 133 last month On IV fluids with normal saline Sodium slowly going up to 125 this morning Recheck sodium level in the morning. TSH low but is better than in November continue levothyroxine (7) Ischemic cardiomyopathy: Code(s): I25.5 - Ischemic cardiomyopathy Status: Chronic Assessment and Plan: Clinically compensated. Monitor volume status closely while cautiously hydrating. (8) Coronary artery disease: Code(s): I25.10 - Atherosclerotic heart disease of [place] coronary artery without angin
[2021-02-12 16:00] VITALS: BP 105/54; PULSE 79; RESP 18; TEMP 36.1; O2SAT 99
[2021-02-12] MEDS: SODIUM CHLORIDE 500 MG TABLET PO (16:27)
[2021-02-12 23:47] VITALS: BP 116/60; PULSE 83; RESP 18; TEMP 36.3; O2SAT 93
[2021-02-13] MEDS: LEVOTHYROXINE SODIUM 75 MCG TABLET PO (05:48)
[2021-02-13 06:16] LABS: Basophils Absolute Auto 0.1 K/mm3 (0.0-0.1); Basophils Percent Auto 0.7 % (0.2-1.2); Eosinophils Absolute Auto 0.2 K/mm3 (0-0.3); Hematocrit 25.3 % (37.0-47.0); Hemoglobin 8.5 g/dL (12.0-15.0); Immature Granulocyte Absolute 0.08 K/mm3 (0.00-0.031); Lymphocytes Absolute Auto 1.55 K/mm3 (0.9-3.2); Mean Corpuscular HGB Conc 33.6 g/dl (32-36); Mean Corpuscular Volume 86.3 fl (80-100); Mean Platelet Volume 8.3 fl (7.4-10.4); Monocytes Percent Auto 12.3 % (2.6-8.5); Neutrophils Absolute Auto 5.3 K/mm3 (1.3-6.7); Platelet Count Result 476 k/mm3 (150-375); Red Blood Count 2.93 M/mm3 (4.2-5.4); Red Cell Distribution Width 17.7 % (11.5-14.5); White Blood Count 8.2 K/mm3 (4.5-10.0)
[2021-02-13 06:26] LABS: Anion Gap 2 mmol/L (8-16); Calcium 8.5 mg/dL (8.4-10.2); Carbon Dioxide 29 mmol/L (22-30); Chloride 94 mmol/L (98-107); Estimated CRCL calculation 90 ml/min; Estimated Glomerular Filt Rate > 60; Glucose 85 mg/dL (65-105); Potassium 4.2 mmol/L (3.4-5.0); Sodium 125 mmol/L (137-145)
[2021-02-13 06:27] LABS: Blood Urea Nitrogen < 2 mg/dL (7-17)
[2021-02-13 07:30] LABS: Anisocytosis 1+ (NORMAL); Platelet Estimate Adequate (Adequate); Poikilocytosis 1+ (NORMAL)
[2021-02-13 08:00] VITALS: PULSE 80; RESP 18; O2SAT 93
[2021-02-13] MEDS: ATORVASTATIN 40 MG TABLET 80 MG PO (08:59)
[2021-02-13 09:00] VITALS: PULSE 80
[2021-02-13] MEDS: SODIUM CHLORIDE 500 MG TABLET PO (09:00)
[2021-02-13] MEDS: METOPROLOL SUCCINATE EXT REL 50 MG TABCR PO (09:00)
--- NOTE | 2021-02-13 09:01 | PM.DS ---
DS: Admitting Diagnosis Admitting Diagnosis Admitting Diagnosis: Elevated INR DS: Discharge Diagnosis Discharge Diagnosis (1) Anemia due to blood loss, acute: Code(s): D62 - Acute posthemorrhagic anemia Status: Acute (2) Hypokalemia: Code(s): E87.6 - Hypokalemia Status: Acute (3) Warfarin-induced coagulopathy: Code(s): D68.32 - Hemorrhagic disorder due to extrinsic circulating anticoagulants; T45.515A - Adverse effect of anticoagulants, initial encounter Status: Acute (4) Hypothyroidism: Code(s): E03.9 - Hypothyroidism, unspecified Status: Acute (5) White matter abnormality on MRI of brain: Onset Date: 10/28/16 Code(s): R90.82 - White matter disease, unspecified Status: Chronic (6) Coronary artery disease: Code(s): I25.10 - Atherosclerotic heart disease of [place] coronary artery without angina pectoris Status: Chronic (7) Ischemic cardiomyopathy: Code(s): I25.5 - Ischemic cardiomyopathy Status: Chronic (8) Hypertension: Code(s): I10 - Essential (primary) hypertension Status: Chronic (9) Hyponatremia: Code(s): E87.1 - Hypo-osmolality and hyponatremia Status: Acute (10) Decubitus ulcer of sacral region: Code(s): L89.159 - Pressure ulcer of sacral region, unspecified stage Status: Acute (11) Abnormal computed tomography of abdomen and pelvis: Code(s): R93.5 - Abnormal findings on diagnostic imaging of other abdominal regions, including retroperitoneum Status: Acute (12) Supratherapeutic INR: Code(s): R79.1 - Abnormal coagulation profile Status: Acute DS: Summary Hospital Course Hospital Course: this 60-year-old female who presents to the ER with elevated INR at 12.4 on routine evaluation. She was noted to be anemic as well on admission. She was given vitamin K in the ER along with 1 unit of FFP. He had a CT scan of the abdomen done which showed new enlargement and central low attenuation involving right psoas muscle, consistent with hematoma versus myositis/abscess. New enlargement of left obturator internus muscle likely hematoma. Her INR was reversed and was down to 1.3. Upon review of records C was taking warfarin for cardioembolic stroke with ischemic cardiomyopathy upon direction from her rack cleaner Dr. silva. Her anticoagulation was on hold due to continued drop in her H& H. The patient is stabilized at 7.9 her baseline being 12. It was discussed with her and her family risk of holding anticoagulation as well as benefit of being off anticoagulation due to hematoma. She did not require any transfusion during this hospital stay and her hemoglobin started to improve on its own /stabilize. Her H&H at the time of discharge was 8.5. Other anticoagulant options were discussed with the patient however she wants to stick to warfarin or would go with further direction from Dr. silva. I have suggested we hold her anticoagulation for next week or so before we be started back again. I have ordered blood work to be done next week to check her CBC and her for her to follow-up with Dr. silva. For the abnormal CT abdomen with so was hematoma/myositis/ abscess she was treated with IV antibiotics during the hospital stay as her WBC count was elevated. Her WBC improved with this and was continued on IV antibiotics for total duration of her hospital stay that is 5 days. Her WBC count at the time of discharge was normal she is concluded on her antibiotic therapy for this. She did not have any ongoing abdominal pain on my evaluation. Another issue she had during the hospital stay as her hyponatremia. She had a sodium level of 119 on admission are normal baseline is around 130s. She was started on normal saline and her sodium level improved to 1 20s her discharge sodium is 125. I put her on starting sodium tablets at discharge and will need a BMP next week to evaluate that. She h
[2021-02-13 10:45] LABS: EDCOVIDSCREEN Negative (Negative)
[2021-02-13 11:00] LABS: INR 1.3
[2021-02-13 14:00] VITALS: BP 104/58; PULSE 71; RESP 12; TEMP 35.8; O2SAT 100
== END 2021-02-13 16:20 | DRG 813 ==
LOC: ANHED 13:49 → ANHIMU 17:50 → ANH3MEDSUR 02-10 14:52 → ANHIMU 02-16 14:57
PROVIDERS: Physician Assistant; Admitting Provider Emergency Medicine; Emergency Provider General Practice; PCP Family Medicine; Visit Provider Internal Medicine
DX: D68.32 Hemorrhagic disorder due to extrinsic circulating anticoagulants (principal); D62 Acute posthemorrhagic anemia; E87.1 Hypo-osmolality and hyponatremia; I50.42 Chronic combined systolic (congestive) and diastolic (congestive) heart failure; T45.515A Adverse effect of anticoagulants, initial encounter; F17.200 Nicotine dependence, unspecified, uncomplicated; I25.10 Atherosclerotic heart disease of native coronary artery without angina pectoris; Z86.73 Personal history of transient ischemic attack (TIA), and cerebral infarction without residual deficits; L89.152 Pressure ulcer of sacral region, stage 2; Z79.01 Long term (current) use of anticoagulants; I11.0 Hypertensive heart disease with heart failure; I25.5 Ischemic cardiomyopathy; E78.5 Hyperlipidemia, unspecified; I48.91 Unspecified atrial fibrillation; E87.6 Hypokalemia; R93.5 Abnormal findings on diagnostic imaging of other abdominal regions, including retroperitoneum
CPT/HCPCS: 36415; 36430; 51701; 70450; 71045; 74177; 80048; 80053; 80076; 81001; 82550; 82570; 82607; 82728; 82746; 82948; 83540; 83550; 83605; 83735; 83880; 83930; 83935; 84295; 84300; 84439; 84443; 84480; 85014; 85018; 85025; 85610; 85652; 85730; 86140; 86850; 86900; 86901; 87040; 87086; 87426; 93005; 96361; 96365; 96367; 97110; 97161; 97166; 97530; 97535; 99285; A9270; C9803; J2543; J3430; J7030; J7050; P9017; Q9967

== ENCOUNTER 2021-03-29 10:05 | Outpatient (NON) | payer MEDICARE, SELFPAY ==
[2021-03-29 10:28] LABS: Potassium 3.4 mmol/L (3.4-5.0); Sodium 131 mmol/L (137-145)
[2021-03-29 10:29] LABS: Anion Gap 0 mmol/L (8-16); Blood Urea Nitrogen 4 mg/dL (7-17); Calcium 8.7 mg/dL (8.4-10.2); Carbon Dioxide 31 mmol/L (22-30); Chloride 100 mmol/L (98-107); Estimated Glomerular Filt Rate > 60; Glucose 107 mg/dL (65-110)
[2021-03-29 14:22] LABS: Hemoglobin 12.1 g/dL (12.0-15.0); Mean Corpuscular Hemoglobin 27.3 pg (26-34); Mean Corpuscular Volume 87.8 fl (80-100); Platelet Count Result 398 k/mm3 (150-375); Red Blood Count 4.44 M/mm3 (4.2-5.4); Red Cell Distribution Width 19.8 % (11.5-14.5); White Blood Count 7.7 K/mm3 (4.5-10.0)
== END 2021-03-29 10:06 | disposition home or self-care (01) ==
PROVIDERS: PCP Family Medicine; Visit Provider Internal Medicine Cardiovascular Disease
DX: L89.312 Pressure ulcer of right buttock, stage 2 (principal); L89.620 Pressure ulcer of left heel, unstageable; I25.5 Ischemic cardiomyopathy; Z48.00 Encounter for change or removal of nonsurgical wound dressing
CPT/HCPCS: 80048; 85027

== ENCOUNTER 2021-10-15 08:15 | Inpatient (IN) | payer MEDICARE, SELFPAY ==
[2021-10-15] VITALS (15 sets, daily range): BP systolic 93–123; BP diastolic 50–77; PULSE 72–107; RESP 14–20; TEMP 36.2–37.1; O2SAT 96–100
--- NOTE | ~2021-10-15 | CT_ITS ---
EXAMINATION: CT abdomen pelvis w con DATE: 10/15/2021 09:37 INDICATION: Decubitus ulcer TECHNIQUE: Computed tomography (CT) of the abdomen and pelvis was performed with 100 CC Omnipaque 350 intravenous contrast. Automated exposure control and iterative reconstruction technique were employe d. Exam dose: 492.92 mGy-cm total exam DLP. COMPARISON: 02/08/2021 CT abdomen pelvis FINDINGS: There is mild atelectasis in the dependent lower lobes and chronic discoid scarring in the left lung base, left lower lobe. There is trace pericardial fluid. Normal heart size. There is intraventricular septal thinning and ca lcification in addition to thinning of the myocardium over the anteroapical area likely due to old my ocardial infarction Small sliding hiatal hernia. Status post cholecystectomy. No hepatic, splenic, pancreatic, and adrenal or renal space-occupying mass lesion is evident. Prominent bilateral staghorn calculi are noted. There is suggestion of a couple of pinpoint nonobstru cting calculi in the proximal right ureter. There numerous small stones layering in the dependent asp ect of the urinary bladder. There is moderate diffuse bladder wall thickening; cystitis is not exclud ed. The uterus and adnexal areas are unremarkable. There are numerous diverticula of the sigmoid colon; no CT evidence of diverticulitis. There is a pro minent amount of fecal material in the colon. No bowel obstruction is evident. No intraperitoneal chalino e air. There is extensive calcification of the abdominal aorta and calcification of the celiac, superior mes enteric, renal and iliac and femoral arteries. No abdominal aortic aneurysm. No intraperitoneal or re troperitoneal or pelvic mass lesion or adenopathy or ascites is detected. Right upper anterior abdominal wall fat-containing hernia measuring up to 5 cm transverse and 2.1 cm anteroposterior dimension, the abdominal wall defect measuring up to approximately 2 cm wide. There is a decubitus ulcer at the posterior aspect of the sacrococcygeal area, with skin thickening, underlying soft tissue inflammation subcutaneous emphysema, without apparent sacral or coccygeal bone destruction. This has worsened considerably since 02/08/2021 at which time focal small area of subcut aneous is fat stranding overlying the sacrum was noted. No suspicious osteolytic or osteoblastic lesions are noted. IMPRESSION: Prominent sacral decubitus ulcer and prominent soft tissue inflammation overlying the sa crococcygeal area, without abscess or obvious sacral or coccygeal osteomyelitis identified; bone scan would be more sensitive for detection of early osteomyelitis. Myocardial infarction Small sliding hiatal hernia Bilateral staghorn renal calculi Numerous bladder calculi Diverticulosis of sigmoid colon; no CT evidence of diverticulitis Right supraumbilical fat-containing abdominal wall hernia Reviewed, dictated and finalized at [facility]. Reviewed, dictated and finalized at [facility]. [employer] IMPRESSION: Prominent sacral decubitus ulcer and prominent soft tissue inflamm ation overlying the sacrococcygeal area, without abscess or obvious sacral or c occygeal osteomyelitis identified; bone scan would be more sensitive for detect ion of early osteomyelitis. Myocardial infarction Small sliding hiatal hernia Bilateral staghorn renal calculi Numerous bladder calculi Diverticulosis of sigmoid colon; no CT evidence of diverticulitis Right supraumbilical fat-containing abdominal wall hernia
--- NOTE | ~2021-10-15 | XR_ITS ---
EXAMINATION: XR chest 1V portable DATE: 10/15/2021 08:47 INDICATION: Left hemiparesis. Sepsis. TECHNIQUE: A single frontal view of the chest was obtained. COMPARISON: Chest single view 02/08/2021, CT abdomen and pelvis 02/08/2021 FINDINGS: The chest demonstrates clear lungs without pneumonia, pleural effusion, or pneumothorax. Th e heart size is normal. IMPRESSION: 1. No acute cardiopulmonary disease. Reviewed, dictated and finalized at [facility]. [employer]
--- NOTE | 2021-10-15 08:35 | ECG_ITS ---
Measurements Intervals [place] Rate: 108 P: 63 VT: QRS: -48 QRSD: 78 T: 94 QT: 353 QTc: 475 Interpretive Statements SINUS TACHYCARDIA WITH SHORT VT INTERVAL ID INFERIOR INFARCTION, AGE INDETERMINATE ANTEROSEPTAL MYOCARDIAL INFARCTION , OF INDETERMINATE AGE [40+ ms Q WAVE IN V1-V4] COMPARED TO ECG 02/08/2021 13:26:08 NONSPECIFIC T-WAVE ABNORMALITY ABNORMAL ECG Electronically Signed On 10-15-2021 10:40:51 [employer] by Tino Mora M.D.
[2021-10-15 09:00] LABS: Basophils Percent Auto 0.3 % (0.2-1.2); Eosinophils Percent Auto 0.1 % (0-4.4); Hematocrit 36.8 % (37.0-47.0); Hemoglobin 12.3 g/dL (12.0-15.0); Immature Granulocyte Absolute 0.09 K/mm3 (0.00-0.031); Immature Granulocyte Percent A 0.6 % (0-0.5); Lymphocytes Percent Auto 7.2 % (18.3-44.2); Mean Corpuscular HGB Conc 33.4 g/dl (32-36); Mean Corpuscular Hemoglobin 31.1 pg (26-34); Mean Corpuscular Volume 92.9 fl (80-100); Mean Platelet Volume 9.4 fl (7.4-10.4); Monocytes Absolute Auto 1.1 K/mm3 (0.1-0.6); Monocytes Percent Auto 7.6 % (2.6-8.5); Neutrophils Absolute Auto 11.7 K/mm3 (1.3-6.7); Neutrophils Percent Auto 84.2 % (45.5-73.1); Platelet Count Result 385 k/mm3 (150-375); Red Blood Count 3.96 M/mm3 (4.2-5.4); Red Cell Distribution Width 14.7 % (11.5-14.5); White Blood Count 13.9 K/mm3 (4.5-10.0)
--- NOTE | 2021-10-15 09:00 | ED.SKABFB ---
HPI - Skin/Abscess/Foreign Bdy General Chief complaint: Skin/Abscess/Foreign Body Stated complaint: bed sore infection Time Seen by Provider: 10/15/21 08:23 Source: patient, family and RN notes reviewed Mode of arrival: EMS Limitations: no limitations History of Present Illness HPI narrative: This is a 61 year old female with history CVA, hypertension, hyperlipidemia who presents for evaluation of an infected bed sore. Patient states she noticed wound on her buttock 2 weeks ago but she did not tell anyone. Her became aware of wound 3 days ago, and he states they have been placing neosporin to wound. She came to ER because her wound has become more painful, red with drainage. She denies fever, chills, nausea, vomiting, chest pain, weakness or shortness of breath. Patient states she has not walked in almost a year due to fear of fall. She has been bedbound as a result. Her states they are only able to change patient once in day, so patient is sitting in urine soaked diaper most of the day. Related Data Home Medications Medication Instructions Recorded Confirmed atorvastatin 80 mg PO DAILY 02/08/21 10/15/21 metoprolol succinate 50 mg PO DAILY 02/08/21 10/15/21 budesonide-formoterol [Symbicort] 3 puff INHALATION BID 10/15/21 10/15/21 levothyroxine [Euthyrox] 75 mcg PO DAILY 10/15/21 10/15/21 Allergies Allergy/AdvReac Type Severity Reaction Status Date / Time No Known Allergies Allergy Verified 10/15/21 15:15 Review of Systems Review of Systems: All systems reviewed & are unremarkable except as noted in HPI and below [facility] Past Medical History Medical History (Updated 10/15/21 @ 17:56 by Cindy Rodriguez MD) Abnormal stress test (10/31/16) Large area of severe infarct involving left ventricular apex, all apical segments, and mid inferior and mid inferolateral segments with apical akinesis and global hypokinesis with left ventricular ejection fraction measuring 35%. Cerebrovascular accident (10/2016) Punctate right parietal focus on MRI on 10/28/2016 Likely cardioembolic in etiology though no thrombus seen at that point in time. Chronic hyponatremia Coronary artery disease Cardiac catheterization on 11/23/2016 showed proximal occlusion of the LAD with left collaterals involving the distal LAD, 1st diagonal artery had 90% ostial stenosis, 70% ostial on when, mid circumflex lesion that was 80% and then a chronic total occlusion, 2nd obtuse marginal artery had 85% ostial lesion with left collaterals and a proximally occluded RCA. Patient of Dr. Tino Mora. ETOH abuse Hyperlipidemia Hypertension Hypothyroidism Ischemic cardiomyopathy Echocardiogram on 05/28/2019 showed normal LV wall thickness, moderate enlargement of the LV cavity, moderate global LV systolic dysfunction, impaired diastolic relaxation grade 1, estimated EF of 35% and a measured EF of 38%. Multiple wall motion abnormalities noted. She has continued to refuse a defibrillator. Tobacco dependence White matter abnormality on MRI of brain (10/28/16) Extensive white matter disease, probably quiescent multiple sclerosis. Surgical History Surgical History (Updated 10/15/21 @ 13:18 by Beverly Murry PA-C) History of cardiac catheterization (11/23/16) Severe triple-vessel coronary artery disease with severely reduced LV systolic function and an EF of 25% and large anteroapical aneurysm. History of cholecystectomy Family History Family History Father Liver cancer Mother Chronic obstructive pulmonary disease Sibling Acute myocardial infarction Other Family history of primary malignant neoplasm of liver Social History Social History Social History: Surrogate decision maker: Charanjit Steen, . Code status: Full code. Smoking packs per day: 0.75 Smoking cigarettes per day: 15.0 Years smoked: 48
[2021-10-15 09:14] LABS: Lactic Acid Reflex 2.3 mmol/L (0.7-2.1)
[2021-10-15 09:15] LABS: INR 1.2; Prothrombin Time 14.3 Seconds (11.1-14.7)
[2021-10-15 09:16] LABS: Partial Thromboplastin Time 34.4 SECONDS (22.3-36.8)
[2021-10-15 09:17] LABS: Alanine Aminotransferase 62 U/L (4-35); Albumin Level 3.6 g/dL (3.5-5.1); Alkaline Phosphatase 166 U/L (38-126); Anion Gap 7 mmol/L (8-16); Aspartate Amino Transferase 95 U/L (14-36); Bilirubin,Total 1.4 mg/dL (0.2-1.3); Blood Urea Nitrogen 7 mg/dL (7-17); Calcium 8.9 mg/dL (8.4-10.2); Carbon Dioxide 29 mmol/L (22-30); Chloride 95 mmol/L (98-107); Estimated CRCL calculation 89 ml/min; Estimated Glomerular Filt Rate > 60; Glucose 137 mg/dL (65-110); Potassium 4.2 mmol/L (3.4-5.0); Sodium 131 mmol/L (137-145)
[2021-10-15] MEDS: SODIUM CHLORIDE 0.9% IV 1,000 ML 999 ML IV CONT (09:17)
[2021-10-15] MEDS: ONDANSETRON INJ 4 MG/2 ML VIAL IV PUSH (09:18)
[2021-10-15] MEDS: MORPHINE SULFATE (*CRX) 2 MG/ML INJ IV PUSH (09:18)
[2021-10-15 09:26] LABS: CRP 23.4 mg/dL (<1.0)
[2021-10-15 09:30] LABS: Add Urine Microscopic? YES; Appearance Urine Cloudy (Clear); Bacteria Urine 2+ /hpf; Bilirubin Urine Negative (Negative); Blood Urine 2+ (Negative); Color Urine Amber (Yellow); Glucose Urine UA Negative (Negative); Ketones Urine Negative (Negative); Leukocyte Esterase Ur 3+ LEU/UL (Negative); Mucus Urine Rare /lpf; Nitrate Urine Negative (Negative); Protein Urine 1+ mg/dL (Negative); RBC Urine 51-75 /hpf (0-2); Specific Grav Ur 1.008 (1.001-1.035); Urobilinogen Urine Negative mg/dL (<2.0); WBC Clumps Urine Present /HPF; WBC Urine >75 /hpf
--- NOTE | 2021-10-15 11:13 | PC.NURSE ---
Updated pts daughter miguel with her permission
--- NOTE | 2021-10-15 11:21 | PC.NURSE ---
Bibi in care coordination notified of patients outpatient needs
--- NOTE | 2021-10-15 11:38 | PC.NURSE ---
Report called to Jose J in Pre-op.
[2021-10-15 11:58] LABS: Reflex Lactic Acid Yes or No Add Lactic
--- NOTE | 2021-10-15 12:06 | PCWOUND ---
WOCN NOTE received ER consult for decubitus ulcer. Patient have surgical debridement today 10/15/[address] Luna. Wound care will not see patient at this time. Will wait instructions from surgeon if needed.
--- NOTE | 2021-10-15 12:28 | PM.CNGS ---
Assessment and Plan Assessment and plan (1) Decubitus ulcer of sacral region: Code(s): L89.159 - Pressure ulcer of sacral region, unspecified stage Status: Acute Assessment and Plan: agree c IV abx, OR for urgent debridement, washout (2) Ischemic cardiomyopathy: Code(s): I25.5 - Ischemic cardiomyopathy Status: Chronic Assessment and Plan: increased risk for operative intervention (3) Tobacco dependence: Code(s): F17.200 - Nicotine dependence, unspecified, uncomplicated Status: Acute Assessment and Plan: discussed cessation, pt not interested History of Present Illness Consult details Consult date: 10/15/21 Reason for consult: wound care Requesting physician: Cindy Rodriguez MD Narrative: Pt is a 61 y/o F c multiple med issues including being largely immobile and bedridden presenting to ED c infected sacral decubitus ulcer. Pt reports ulcer has been present for quite awhile but recently has become larger and more symptomatic. Pt reports redness and drainage from the wound over last few days. Pt denies any systemic symptoms, including f/c, poor appetite, etc. Review of Systems Constitutional: Constitutional: Denies anorexia, Reports body ache(s), Denies chills, Reports fatigue, Reports frequent falls, Denies increased appetite, Reports lethargy, Denies poor appetite, Reports weakness, Denies weight gain and Denies weight loss Eyes: Eyes: Reports no additional eye complaints ENT: Reports system reviewed and no additional complaints, except as documented Cardiovascular: Cardiovascular: Reports no additional cardiovascular complaints Respiratory: Respiratory: Reports no additional respiratory complaints Gastrointestinal: Gastrointestinal: Reports no additional gastrointestinal complaints Genitourinary: Genitourinary: Reports no additional female genitourinary complaints Musculoskeletal: Musculoskeletal: Reports as per HPI, Reports limited range of motion, Reports muscle weakness and Reports stiffness Integumentary/Breasts: Skin/Breast: Reports system reviewed and no additional complaints, except as docu, Reports as per HPI and Reports skin ulcer Neurologic: Reports system reviewed and no additional complaints, except as documented Psychiatric: Psychiatric: Reports no additional psychiatric complaints Endocrine: Endocrine: Reports no additional endocrine complaints Hematologic/Lymphatic: Hematologic/Lymphatic: Reports no additional hematologic/lymphatic complaints Allergic/Immunologic: Allergic/Immunologic: Reports no additional allergic/immunologic complaints PMFSH Past Medical History Medical History Abnormal stress test (10/31/16) Large area of severe infarct involving left ventricular apex, all apical segments, and mid inferior and mid inferolateral segments with apical akinesis and global hypokinesis with left ventricular ejection fraction measuring 35%. Cerebrovascular accident (10/2016) Punctate right parietal focus on MRI on 10/28/2016 Likely cardioembolic in etiology though no thrombus seen at that point in time. Coronary artery disease Cardiac catheterization on 11/23/2016 showed proximal occlusion of the LAD with left collaterals involving the distal LAD, 1st diagonal artery had 90% ostial stenosis, 70% ostial on when, mid circumflex lesion that was 80% and then a chronic total occlusion, 2nd obtuse marginal artery had 85% ostial lesion with left collaterals and a proximally occluded RCA. Patient of Dr. Tino Mora. Hyperlipidemia Hypertension Hypothyroidism Ischemic cardiomyopathy Echocardiogram on 05/28/2019 showed normal LV wall thickness, moderate enlargement of the LV cavity, moderate global LV systolic dysfunction, impaired diastolic relaxation grade 1, estimated EF of 35% and a measured EF of 38%. Multiple wall motion abnormalities noted. She has continued to refuse a defibrillator. Tobacco de
[2021-10-15] MEDS: LACTATED RINGERS 1,000 ML 30 ML IV CONT (12:35)
--- NOTE | 2021-10-15 12:36 | WPDHPUPDATE1 ---
History and Physical Update Update Date/Time: 10/15/21 12:36 History and Physical has been reviewed, including an updated exam of the patient. There are NO changes in the patient's condition. Risks, benefits, and alternatives have been discussed and questions answered. Patient agrees to proceed with procedure.
--- NOTE | 2021-10-15 12:50 | PM.IMHP ---
H&P: HPI History of Present Illness Date/Time: 10/15/21 12:50 Chief Complaint: Pressure wound on buttocks. Narrative: This is a 61-year-old female smoker with history of cerebrovascular accident, coronary artery disease, ischemic cardiomyopathy, combined systolic and diastolic congestive heart failure, hypothyroidism, and hyperlipidemia who presented to the emergency department from home for evaluation of a pressure wound on her buttocks. She has been essentially bed-bound for nearly 1 year and she was noted to have a stage II sacral decubitus ulcer when hospitalized in January 2021 with a supratherapeutic INR and intramuscular hematomas. It is my understanding that that wound healed. According to the patient she was aware of a wound developing ?on my buttocks? a couple of weeks ago though she did not alert anybody and her only became aware of the wound a few days ago. He has been trying to keep the area clean and has been putting Neosporin on the wound though unfortunately it has gotten worse. Family members are trying to care for her at home though they are only able to change her undergarments once a day which is problematic. CT of the abdomen and pelvis showed prominent sacral decubitus ulcer with soft tissue inflammation overlying the sacrococcygeal area without obvious evidence of abscess or osteomyelitis. She was taken to the OR for debridement and washout and she is now being admitted for IV antibiotics and further care. She reports feeling just fine postoperatively and has minimal if any discomfort. She reports subjective fever a couple of days ago but that has since passed. No nausea, vomiting, diarrhea, or dysuria. Review of Systems Review of Systems: Twelve systems were reviewed and are negative except for as per HPI. [facility] Past Medical History Medical History (Updated 10/15/21 @ 21:21 by Beverly Murry PA-C) Abnormal stress test (10/31/16) Large area of severe infarct involving left ventricular apex, all apical segments, and mid inferior and mid inferolateral segments with apical akinesis and global hypokinesis with left ventricular ejection fraction measuring 35%. Cerebrovascular accident (10/2016) Punctate right parietal focus on MRI on 10/28/2016 Likely cardioembolic in etiology though no thrombus seen at that point in time. Chronic hyponatremia Coronary artery disease Cardiac catheterization on 11/23/2016 showed proximal occlusion of the LAD with left collaterals involving the distal LAD, 1st diagonal artery had 90% ostial stenosis, 70% ostial on when, mid circumflex lesion that was 80% and then a chronic total occlusion, 2nd obtuse marginal artery had 85% ostial lesion with left collaterals and a proximally occluded RCA. Patient of Dr. Tino Mora. Hyperlipidemia Hypertension Hypothyroidism Ischemic cardiomyopathy Echocardiogram on 05/28/2019 showed normal LV wall thickness, moderate enlargement of the LV cavity, moderate global LV systolic dysfunction, impaired diastolic relaxation grade 1, estimated EF of 35% and a measured EF of 38%. Multiple wall motion abnormalities noted. She has continued to refuse a defibrillator. Tobacco dependence White matter abnormality on MRI of brain (10/28/16) Extensive white matter disease, probably quiescent multiple sclerosis. Surgical History Surgical History (Updated 10/15/21 @ 13:18 by Beverly Murry PA-C) History of cardiac catheterization (11/23/16) Severe triple-vessel coronary artery disease with severely reduced LV systolic function and an EF of 25% and large anteroapical aneurysm. History of cholecystectomy Family History Family History Father Liver cancer Mother Chronic obstructive pulmonary disease Sibling Acute myocardial infarction Other Family history of primary malignant neoplasm of liver Social History Social History (Updated 10/15/21 @ 21:22 by Beverly Murry PA-C) Social History: Marielle
[2021-10-15 12:52] LABS: Lactic Acid 1.3 mmol/L (0.7-2.1)
--- NOTE | 2021-10-15 13:04 | WPDANESEPPF ---
Anes - Initial Pre Proc Eval Procedure: Operation Date: 10/15/21 13:30 Proposed Procedures p Debridement Left Buttock Sacral Decubitus Ulcer - Shelly Luna MD Date/Time: 10/15/21 13:04 Surgeon: Evangelina Barlow MD Pre Op Diagnosis: Infected decubitus ulcer Patient Data Age: 61 Gender: F Height: 1.55 m Weight: 57.5 kg Last Vital Signs Temp 37.1 C 10/15/21 12:34 Pulse 95 10/15/21 12:34 Resp 16 10/15/21 12:34 BP 108/66 10/15/21 12:34 Pulse Ox 97 10/15/21 12:34 Allergies Allergy/AdvReac Type Severity Reaction Status Date / Time No Known Allergies Allergy Verified 02/08/21 17:39 Home Medications Medication Instructions Recorded Confirmed Type atorvastatin 80 mg PO DAILY 02/08/21 02/08/21 History levothyroxine 75 mcg PO DAILY 02/08/21 02/08/21 History metoprolol succinate 50 mg PO DAILY 02/08/21 02/08/21 History aspirin 81 mg PO DAILY #30 tablet 02/13/21 Rx sodium chloride 500 mg PO DAILY #7 tablet 02/13/21 Rx Laboratory Tests 10/15/21 10/15/21 10/15/21 08:53 08:53 08:53 WBC 13.9 K/mm3 H K/mm3 (4.5-10.0) RBC 3.96 M/mm3 L M/mm3 (4.2-5.4) Hgb 12.3 g/dL g/dL (12.0-15.0) Hct 36.8 % L % (37.0-47.0) MCV 92.9 fl fl (80-100) MCH 31.1 pg pg (26-34) MCHC 33.4 g/dl g/dl (32-36) RDW 14.7 % H % (11.5-14.5) Plt Count 385 k/mm3 H k/mm3 (150-375) MPV 9.4 fl fl (7.4-10.4) Immature Gran % (Auto) 0.6 % H % (0-0.5) Neut % (Auto) 84.2 % H % (45.5-73.1) Lymph % (Auto) 7.2 % L % (18.3-44.2) [place] % (Auto) 7.6 % % (2.6-8.5) Eos % (Auto) 0.1 % % (0-4.4) Baso % (Auto) 0.3 % % (0.2-1.2) Lymph # (Auto) 1.00 K/mm3 K/mm3 (0.9-3.2) [place] # (Auto) 1.1 K/mm3 H K/mm3 (0.1-0.6) Eos # (Auto) 0.0 K/mm3 K/mm3 (0-0.3) Baso # (Auto) 0.0 K/mm3 K/mm3 (0.0-0.1) Abs Immat Gran (auto) 0.09 K/mm3 H K/mm3 (0.00-0.031) Absolute Neuts (auto) 11.7 K/mm3 H K/mm3 (1.3-6.7) Absolute Nucleated RBC 0.0 K/mm3 K/mm3 (0.0-0.012) Nucleated RBC % 0.0 % % (0.0-0.2) PT 14.3 Seconds Seconds (11.1-14.7) INR 1.2 APTT 34.4 SECONDS SECONDS (22.3-36.8) Sodium 131 mmol/L L mmol/L (137-145) Potassium 4.2 mmol/L mmol/L (3.4-5.0) Chloride 95 mmol/L L mmol/L (98-107) Carbon Dioxide 29 mmol/L mmol/L (22-30) Anion Gap 7 mmol/L L mmol/L (8-16) BUN 7 mg/dL mg/dL (7-17) Creatinine 0.40 mg/dL L mg/dL (0.7-1.0) Estim Creat Clear Calc 89 ml/min ml/min Estimated GFR > 60 (59 - ) Glucose 137 mg/dL H mg/dL (65-110) Lactic Acid Calcium 8.9 mg/dL mg/dL (8.4-10.2) Magnesium 2.0 mg/dL mg/dL (1.6-2.3) Total Bilirubin 1.4 mg/dL H mg/dL (0.2-1.3) AST 95 U/L H U/L (14-36) ALT 62 U/L H U/L (4-35) Alkaline Phosphatase 166 U/L H U/L (38-126) C-Reactive Protein 23.4 mg/dL H mg/dL (<1.0) Total Protein 7.0 g/dL g/dL (6.3-8.2) Albumin 3.6 g/dL g/dL (3.5-5.1) Urine Color Urine Appearance Urine pH Ur Specific [place] Urine Protein Urine Glucose (UA) Urine Ketones Ur Blood (Man) Urine Nitrate Urine Bilirubin Urine Urobilinogen Leukocyte Esterase Rfl Urine RBC Urine WBC Urine WBC Clumps Urine Bacteria Urine Mucus 10/15/21 10/15/21 10/15/21 08:53 09:15 12:34 WBC RBC Hgb Hct MCV MCH MCHC RDW Plt Count MP
--- NOTE | 2021-10-15 13:43 | P.OP_ITS ---
Procedure Note - Detailed Date of Procedure 10/15/21 Pre-op Diagnosis Infected left buttock sacral decubitus ulcer Post-op Diagnosis Same Procedure Performed Excisional debridement infected left buttock sacral decubitus ulcer measuring ap proximately 6 x 3.5 cm with extension through dermis subcutaneous tissue muscle to periosteum Surgeon Shelly Luna MD Anesthesia General Indications 61 year old female with multiple medical issues now presenting with left buttock infected sacral decubitus ulcer Findings infected left buttock sacral decubitus ulcer with necrotic tissue extending through dermis, subcutaneous tissue, muscle Description of Procedure The patient was taken to the operating room and placed in lateral position. After adequate induction of general anesthesia, the patient was prepped and drap ed in the normal sterile fashion. A time-out was then done to verify the patient's identity, as well as the procedure being performed. I began by excising the necrotic tissue over lying this ulcer. The necrosis began at the dermal level and upon getting into the subcutaneous tissue was noted to extend through the fat and the muscle. There is also noted to be some purulent drainage from this area. I went ahead and debrided all this necrotic, infected tissue. It was noted that the periosteum over the sacrum was intact and viable. There was really no tracking or tunneling. The wound measured approximately 6 x 3.5 cm. Once I excised all the necrotic, infected tissue, I copiously irrigated the cavity with normal saline. I then gained hemostasis with the Bovie cautery. The wound was packed with wet to dry sterile dressing. the patient tolerated the procedure well and was extubated in the operating room postoperatively. She will be sent to the recovery room in stable condition. Estimated Blood Loss 10 Drains No Packing Yes Pathology None sent Complications No immediate complications Condition Stable Disposition PACU
--- NOTE | 2021-10-15 15:00 | ADMGEN ---
This patient, Denise Steen, was admitted to Medical Room 250-01 from PACU Patient/family oriented to hospital policies and general routines including ID bracelet, bed and alarms, visiting hours, pain management, procedures, bathroom and other care routines, personal items, smoking policy, room service/diet, and visiting hours. Information on how to activate the Rapid Response Team has been discussed. Patient/Family are encouraged to report perceived risks to care and to ask questions if they do not understand what they are told or what they should do.
[2021-10-15] MEDS: SODIUM CHLORIDE 0.9% IV 1,000 ML 125 ML IV CONT (16:22)
[2021-10-16 05:03] LABS: Basophils Percent Auto 0.2 % (0.2-1.2); Hematocrit 31.1 % (37.0-47.0); Hemoglobin 10.5 g/dL (12.0-15.0); Immature Granulocyte Absolute 0.07 K/mm3 (0.00-0.031); Immature Granulocyte Percent A 0.6 % (0-0.5); Lymphocytes Absolute Auto 1.02 K/mm3 (0.9-3.2); Lymphocytes Percent Auto 8.3 % (18.3-44.2); Mean Corpuscular HGB Conc 33.8 g/dl (32-36); Mean Corpuscular Hemoglobin 31.1 pg (26-34); Mean Platelet Volume 9.3 fl (7.4-10.4); Monocytes Percent Auto 7.8 % (2.6-8.5); Neutrophils Absolute Auto 10.2 K/mm3 (1.3-6.7); Neutrophils Percent Auto 83.1 % (45.5-73.1); Platelet Count Result 365 k/mm3 (150-375); Red Blood Count 3.38 M/mm3 (4.2-5.4); Red Cell Distribution Width 14.7 % (11.5-14.5); White Blood Count 12.2 K/mm3 (4.5-10.0)
[2021-10-16 05:15] LABS: Alanine Aminotransferase 55 U/L (4-35); Albumin Level 2.9 g/dL (3.5-5.1); Alkaline Phosphatase 152 U/L (38-126); Anion Gap 5 mmol/L (8-16); Aspartate Amino Transferase 62 U/L (14-36); Bilirubin,Total 0.8 mg/dL (0.2-1.3); Blood Urea Nitrogen 7 mg/dL (7-17); Calcium 8.2 mg/dL (8.4-10.2); Carbon Dioxide 27 mmol/L (22-30); Chloride 103 mmol/L (98-107); Creatine Kinase 244 U/L (30-135); Estimated CRCL calculation 73 ml/min; Estimated Glomerular Filt Rate > 60; Glucose 107 mg/dL (65-110); Magnesium 2.1 mg/dL (1.6-2.3); Potassium 3.8 mmol/L (3.4-5.0); Sodium 135 mmol/L (137-145)
[2021-10-16 06:00] VITALS: BP 104/55; PULSE 77; RESP 18; TEMP 36.3; O2SAT 96
[2021-10-16 06:03] LABS: Hepatitis B Surface Antigen Negative (Negative)
--- NOTE | 2021-10-16 06:06 | PCRCNOTE ---
Window of time for administration has passed. See next scheduled administration.
[2021-10-16 06:09] LABS: HAV RESULT Negative (Negative); Hepatitis B Core IgM Result Negative (Negative)
[2021-10-16] MEDS: LEVOTHYROXINE SODIUM 75 MCG TABLET PO (06:14)
[2021-10-16 06:21] LABS: Hepatitis C Virus Antibody Negative (Negative)
[2021-10-16 07:03] LABS: Free T4 Free Thyroxine Reflex 1.32 ng/dL (0.78-2.19)
[2021-10-16 08:50] VITALS: BMI 11.0
[2021-10-16] MEDS: FLUTICASONE/SALMETEROL 115-21 MCG INHALER 1 PUFF 2 PUFF INHALATION ×2 (08:51→20:28)
[2021-10-16 08:54] VITALS: PULSE 88
[2021-10-16] MEDS: ATORVASTATIN 40 MG TABLET 80 MG PO (08:54)
[2021-10-16] MEDS: ASPIRIN 81 MG ENTERIC TABLET PO (08:54)
[2021-10-16] MEDS: METOPROLOL SUCCINATE EXT REL 50 MG TABCR PO (08:54)
[2021-10-16 08:56] VITALS: PULSE 70; O2SAT 96
--- NOTE | 2021-10-16 10:22 | PM.IMPN ---
Progress Note: A&P Assessment and Plan (1) Decubitus ulcer of sacral region: Code(s): L89.159 - Pressure ulcer of sacral region, unspecified stage Status: Acute Assessment and Plan: -Status post excisional debridement and washout 10/15/21. -Continue Zosyn, pending cultures. -appreciate general surgery consultation (2) Abnormal urinalysis: Code(s): R82.90 - Unspecified abnormal findings in urine Status: Acute Assessment and Plan: -Patient denies having signs or symptoms of urinary tract infection. -Continue Zosyn, pending urine culture. (3) Staghorn kidney stones: Code(s): N20.0 - Calculus of kidney Status: Acute Assessment and Plan: -Patient has no history of nephrolithiasis to her knowledge. -Given bilateral staghorn calculi and numerous bladder calculi, I will ask the urologist to see her in consultation for recommendations though not causing an acute issue she will have difficulties leaving the home for outpatient appointments. -Renal function is normal. (4) Bladder stones: Code(s): N21.0 - Calculus in bladder Status: Acute Assessment and Plan: -Plan is as detailed above. (5) Coronary artery disease: Code(s): I25.10 - Atherosclerotic heart disease of [place] coronary artery without angina pectoris Status: Chronic Assessment and Plan: -No acute issues. -Continue aspirin, statin, and beta-miguel. (6) Ischemic cardiomyopathy: Code(s): I25.5 - Ischemic cardiomyopathy Status: Chronic Assessment and Plan: -Clinically she is euvolemic. -Avoid over-hydration. (7) Chronic hyponatremia: Code(s): E87.1 - Hypo-osmolality and hyponatremia Status: Acute Assessment and Plan: -Sodium is stable and will be monitored. (8) Hypothyroidism: Code(s): E03.9 - Hypothyroidism, unspecified Status: Acute Assessment and Plan: -Continue levothyroxine -TSH low but T4 is WNL (9) Tobacco dependence: Code(s): F17.200 - Nicotine dependence, unspecified, uncomplicated Status: Acute Assessment and Plan: -She declines the need for nicotine patch. -She is not interested in smoking cessation. (10) Discharge planning issues: Code(s): Z02.9 - Encounter for administrative examinations, unspecified Status: Acute Assessment and Plan: -pt comes from home where and son care for her, she would like to return there -at request of ER providers care coordination has attempted to file an adult protective services report due to the severity of the patient's wound as she is bed bound -please refer to care coordination notes for further details Subjective Date/time seen: 10/16/21 10:22 Interval history: 61-year-old female smoker with history of cerebrovascular accident, coronary artery disease, ischemic cardiomyopathy, combined systolic and diastolic congestive heart failure, hypothyroidism, and hyperlipidemia, admitted for sacral decubitus ulcer. She is s/p surgical debridement 10/15/21. Today patient is doing well. She has no complaints. Denies buttock pain, nausea, vomiting, abd pain, cp, sob. A/Ox4. Review of Systems Review of Systems: All systems reviewed & are unremarkable except as noted in HPI and below Exam Narrative: General: Disheveled, chronically ill-appearing female lying on her left side in bed. Weight: 57.5 kg. BMI: 24.0. HEENT: PERRL. Sclerae anicteric. She is edentulous. Mucous membranes are tacky. Neck: Supple. Respiratory: Respirations are nonlabored and she is speaking in full sentences. Lungs are clear to auscultation. Cardiovascular: Regular rate and rhythm with S1-S2. Gastrointestinal: Abdomen is soft, nontender, and nondistended with positive bowel sounds. Skin: Warm and dry. Surgical dressing is clean, dry, and intact and was
--- NOTE | 2021-10-16 10:36 | PM.PNGS ---
Progress Note: A&P Assessment and Plan (1) Decubitus ulcer of sacral region: Code(s): L89.159 - Pressure ulcer of sacral region, unspecified stage Status: Acute Assessment and Plan: s/p debridement, washout, cont local wound care, cont abx, await cx Subjective Subjective Date/Time Seen: 10/16/21 10:36 no c/o, reports mild incisional pain L buttock Review of Systems Review of Systems: All systems reviewed & are unremarkable except as noted in HPI and below Exam Const: General: cooperative, comfortable and no acute distress Orientation/consciousness: patient oriented x3 Resp: Auscultation: clear to auscultation bilaterally Cardio: Rate: regular rate Rhythm: regular rhythm GI: Inspection: normal to inspection GI Palp: Yes Soft to palpation and No Tenderness to palpation present (GI) Skin: Other: L buttock wound - mild s/s drainage, good granulation tissue Objective Data Vital Signs Vital Signs: Vital Signs - 24 hr 10/15/21 10:55 10/15/21 11:47 10/15/21 12:34 Temperature 37.1 C 37.1 C Pulse Rate 72 94 95 Respiratory Rate 18 18 16 Blood Pressure 111/71 119/65 108/66 Pulse Oximetry 99 97 97 10/15/21 13:48 10/15/21 14:00 10/15/21 14:18 Temperature 36.2 C L Pulse Rate 88 99 95 Respiratory Rate 16 18 17 Blood Pressure 96/57 L 100/74 100/59 L Pulse Oximetry 100 100 98 10/15/21 14:35 10/15/21 15:14 10/15/21 15:30 Temperature 36.5 C 36.6 C Pulse Rate 92 90 89 Respiratory Rate 14 20 20 Blood Pressure 102/65 103/58 L 106/68 Pulse Oximetry 99 98 97 10/15/21 16:00 10/15/21 17:11 10/15/21 17:13 Temperature 36.5 C 36.6 C Pulse Rate 84 86 Respiratory Rate 18 20 Blood Pressure 94/54 L 98/59 L Pulse Oximetry 97 97 96 10/15/21 21:37 10/15/21 22:00 10/16/21 06:00 Temperature 36.4 C L 36.3 C L Pulse Rate 90 77 Respiratory Rate 20 18 Blood Pressure 105/50 L 93/50 L 104/55 L Pulse Oximetry 98 96 03/05/22 08:54 10/16/21 08:56 Temperature Pulse Rate 88 70 Respiratory Rate Blood Pressure Pulse Oximetry 96 Intake/Output Intake/Output: Intake & Output 10/13/21 10/14/21 10/15/21 10/16/21 23:59 23:59 23:59 23:59 Intake Total 1370 470 Output Total 0 Balance 1370 470 Meds/Results Medications: Active Medications Generic Name Dose Route Start Last Admin Trade Name Freq PRN Reason Stop Dose Admin Aspirin 81 mg 10/16/21 09:00 10/16/21 08:54 Aspirin 81 Mg Enteric Tablet PO 81 mg DAILY REGINA Administration Atorvastatin Calcium 80 mg 10/16/21 09:00 10/16/21 08:54 Atorvastatin 40 Mg Tablet PO 80 mg DAILY REGINA Administration Piperacillin/Tazobactam/Dextrose 3.375 gm in 50 mls @ 100 mls/hr 10/15/21 15:00 10/16/21 08:57 Zosyn 3.375 Gm/D5w 50ml Pm IVPB 100 mls/hr Q6H REGINA Administration Levothyroxine Sodium 75 mcg 10/16/21 06:30 10/16/21 06:14 Levothyroxine Sodium 75 Mcg Tablet PO 75 mcg DAILY@0630 REGINA Administration Metoprolol Succinate 50 mg 10/16/21 09:00 10/16/21 08:54 Metoprolol Succinate Ext Rel 50 Mg Tabcr PO 50 mg DAILY REGINA Administration Ondansetron HCl 4 mg 10/15/21 11:34 Ondansetron Inj 4 Mg/2 Ml Vial IV PUSH Q4H PRN Nausea Ondansetron HCl 4 mg 10/15/21 13:04 Ondansetron Inj 4 Mg/2 Ml Vial IV PUSH ONCE PRN Nausea Fluticasone/Salmeterol 2 puff 10/15/21 20:00 10/16/21 08:51 Fluticasone/Salmeterol 115-21 Mcg Inhaler 1 Puff INHALATION 2 puff Q12HRT REGINA Administration Radiology Results: ITS Impressions Chest X-Ray 10/15/21 08:50 IMPRESSION: 1. No acute cardiopulmonary disease. Abdomen/Pelvis CT 10/15/21 09:38 IMPRESSION: Prominent sacral decubitus ulcer and prominent soft tissue inflammation overlying the sacrococcygeal area, without abscess or obvious sacral or coccygeal osteomyelitis identified; bone scan would be more sensitive for detection of early osteomyelitis. Myocardial infarction Small sliding hiatal hernia Bilater
--- NOTE | 2021-10-16 12:08 | WPDURCON ---
Assessment and Plan Assessment and plan (1) Bladder stones: Code(s): N21.0 - Calculus in bladder Status: Acute Assessment and Plan: she is asymptomatic. I would recommend cystoscopy and treatment of these electively after UTI has been treated (2) Staghorn kidney stones: Code(s): N20.0 - Calculus of kidney Status: Acute Assessment and Plan: She has bilateral staghorn stones and stone fragments in her bladder -plan to treat her underlying UTI -I discussed with her and her that these stones are very large and will continue to grow and could cause life threatening problems if she chooses to not treat them. We discussed stone treatment options with observation, ESWL, URS, and PCNL. Given there stone sizes these would be best treated by PCNL. I will discuss with Dr Yancey or Dr Garza possibly arranging treatment of these via PCNL ( in STL at [facility] as equipment is not available to perform at [place]) at a later date after her acute issues have subsided Urology Consult Note HPI Date Seen: 10/16/21 Requesting Physician: Mary Alice Smalls PA-C Primary Care Provider: Cindy Lilly, COGENERATION TECHNICIAN-BC Consult Narrative Narrative: Denise Steen is a 61 year old female with multiple medical problems including HTN, CAD, hemiparesis s/p stroke, HTOD, HLD, who is in a chronic bedbound state who was admitted for sacral decubitus ulcers. She underwent debridement. Incidentally she was found to have bladder stones and bilateral renal staghorn stones without hydronephrosis. Patient denies flank pain, she denies frequent UTI, she denies prior history of stone disease. She has never seen a urologist before. She denies hematuria or dysuria. Review of Systems Constitutional: Constitutional: Reports as per HPI Eyes: Eyes: Reports as per HPI and Reports no additional eye complaints ENT: Reports system reviewed and no additional complaints, except as documented Cardiovascular: Cardiovascular: Reports as per HPI Respiratory: Respiratory: Reports as per HPI Gastrointestinal: Gastrointestinal: Reports no additional gastrointestinal complaints and Denies abdominal pain Genitourinary: Genitourinary: Reports no additional female genitourinary complaints and Denies hematuria Musculoskeletal: Musculoskeletal: Reports no additional musculoskeletal complaints Integumentary/Breasts: Skin/Breast: Reports system reviewed and no additional complaints, except as docu Neurologic: Reports system reviewed and no additional complaints, except as documented Psychiatric: Psychiatric: Reports no additional psychiatric complaints Endocrine: Endocrine: Reports no additional endocrine complaints Hematologic/Lymphatic: Hematologic/Lymphatic: Reports no additional hematologic/lymphatic complaints Allergic/Immunologic: Allergic/Immunologic: Reports no additional allergic/immunologic complaints [facility] Past Medical History Medical History (Updated 10/16/21 @ 10:27 by Mary Alice Smalls PA-C) Abnormal stress test (10/31/16) Large area of severe infarct involving left ventricular apex, all apical segments, and mid inferior and mid inferolateral segments with apical akinesis and global hypokinesis with left ventricular ejection fraction measuring 35%. Cerebrovascular accident (10/2016) Punctate right parietal focus on MRI on 10/28/2016 Likely cardioembolic in etiology though no thrombus seen at that point in time. Chronic hyponatremia Coronary artery disease Cardiac catheterization on 11/23/2016 showed proximal occlusion of the LAD with left collaterals involving the distal LAD, 1st diagonal artery had 90% ostial stenosis, 70% ostial on when, mid circumflex lesion that was 80% and then a chronic total occlusion, 2nd obtuse marginal artery had 85% ostial lesion with left collaterals and a proximally occluded RCA. Patient of Dr. Tino Mora. Hyperlipidemia Hypertension Hypothyroidism Ischemic cardiomyopathy [place]
[2021-10-16 14:00] VITALS: BP 101/52; PULSE 87; RESP 16; TEMP 36.6; O2SAT 97
[2021-10-16 20:22] VITALS: BP 97/57; PULSE 85; RESP 16; TEMP 37.1; O2SAT 95
[2021-10-16 20:28] VITALS: PULSE 60; O2SAT 97
[2021-10-16 22:19] LABS: Glucose Point of Care 136 mg/dl (65-105)
[2021-10-17 04:58] LABS: Basophils Absolute Auto 0.1 K/mm3 (0.0-0.1); Basophils Percent Auto 0.6 % (0.2-1.2); Eosinophils Absolute Auto 0.1 K/mm3 (0-0.3); Eosinophils Percent Auto 0.5 % (0-4.4); Hematocrit 30.4 % (37.0-47.0); Hemoglobin 10.4 g/dL (12.0-15.0); Immature Granulocyte Absolute 0.04 K/mm3 (0.00-0.031); Immature Granulocyte Percent A 0.4 % (0-0.5); Lymphocytes Absolute Auto 1.16 K/mm3 (0.9-3.2); Mean Corpuscular HGB Conc 34.2 g/dl (32-36); Mean Corpuscular Hemoglobin 31.2 pg (26-34); Mean Corpuscular Volume 91.3 fl (80-100); Mean Platelet Volume 9.2 fl (7.4-10.4); Monocytes Absolute Auto 1.2 K/mm3 (0.1-0.6); Monocytes Percent Auto 11.9 % (2.6-8.5); Neutrophils Absolute Auto 7.2 K/mm3 (1.3-6.7); Neutrophils Percent Auto 74.6 % (45.5-73.1); Platelet Count Result 374 k/mm3 (150-375); Red Blood Count 3.33 M/mm3 (4.2-5.4); Red Cell Distribution Width 14.6 % (11.5-14.5); White Blood Count 9.7 K/mm3 (4.5-10.0)
[2021-10-17 05:21] LABS: Anion Gap 3 mmol/L (8-16); Blood Urea Nitrogen 5 mg/dL (7-17); Carbon Dioxide 30 mmol/L (22-30); Chloride 99 mmol/L (98-107); Estimated CRCL calculation 71 ml/min; Estimated Glomerular Filt Rate > 60; Glucose 92 mg/dL (65-110); Potassium 3.7 mmol/L (3.4-5.0); Sodium 132 mmol/L (137-145)
[2021-10-17 06:00] VITALS: BP 91/54; PULSE 82; RESP 14; TEMP 36.8; O2SAT 94
[2021-10-17] MEDS: LEVOTHYROXINE SODIUM 75 MCG TABLET PO (06:06)
[2021-10-17] MEDS: ASPIRIN 81 MG ENTERIC TABLET PO (08:08)
[2021-10-17] MEDS: ATORVASTATIN 40 MG TABLET 80 MG PO (08:08)
--- NOTE | 2021-10-17 08:15 | PM.IMPN ---
Progress Note: A&P Assessment and Plan (1) Decubitus ulcer of sacral region: Code(s): L89.159 - Pressure ulcer of sacral region, unspecified stage Status: Acute Assessment and Plan: -Status post excisional debridement and washout 10/15/21. -no wound cultures done -Continue Zosyn -blood cultures x 2 and urine cultures shows no growth -no fevers -WBC improved from 13.9 to 9.7 now -nursing continuing dressing changes BID, patient will need to have care and dressing changes BID -appreciate general surgery consultation (2) Abnormal urinalysis: Code(s): R82.90 - Unspecified abnormal findings in urine Status: Acute Assessment and Plan: -Patient denies having signs or symptoms of urinary tract infection. -Continue Zosyn -blood cultures x 2 and urine cultures shows no growth -no fevers -WBC improved from 13.9 to 9.7 now -will repeat UA now (3) Staghorn kidney stones: Code(s): N20.0 - Calculus of kidney Status: Acute Assessment and Plan: -Patient has no history of nephrolithiasis / bladder stones to her knowledge. -Given bilateral staghorn calculi and numerous bladder calculi, I will ask the urologist to see her in consultation for recommendations though not causing an acute issue she will have difficulties leaving the home for outpatient appointments. -Renal function is normal. -Continue IV Zosyn -Urology advising renal stones to be treated by PCNL in [facility] as equipment is not available to perform at [place]. - rehydrate and improve UA for now (4) Coronary artery disease: Code(s): I25.10 - Atherosclerotic heart disease of [place] coronary artery without angina pectoris Status: Chronic Assessment and Plan: -No acute issues. -Continue aspirin, statin, and beta-miguel. -Her BPs have been borderline low, 91/54 to 97/57 - holding her Metoprolol. (5) Ischemic cardiomyopathy: Code(s): I25.5 - Ischemic cardiomyopathy Status: Chronic Assessment and Plan: -Clinically she is euvolemic. -Avoid over-hydration. - Her BPs have been borderline low, 91/54 to 97/57 - holding her Metoprolol. (6) Chronic hyponatremia: Code(s): E87.1 - Hypo-osmolality and hyponatremia Status: Acute Assessment and Plan: -Sodium is stable and will be monitored. -Sodium 132 today -no neurological deficits noted, no confusion (7) Hypothyroidism: Code(s): E03.9 - Hypothyroidism, unspecified Status: Acute Assessment and Plan: -Continue levothyroxine -dose slightly increased -TSH 5.07 on 10/16/21, T4 is WNL -repeat TSH in 6 weeks. (8) Tobacco dependence: Code(s): F17.200 - Nicotine dependence, unspecified, uncomplicated Status: Acute Assessment and Plan: -She declines the need for nicotine patch. -She is not interested in smoking cessation. -need to educate family and friend how to help with smoking cessation and avoid bring the nicotine in home (9) Discharge planning issues: Code(s): Z02.9 - Encounter for administrative examinations, unspecified Status: Acute Assessment and Plan: -pt comes from home where and son care for her, she would like to return there -at request of ER providers care coordination has attempted to file an adult protective services report due to the severity of the patient's wound as she is bed bound -patient has unrealistic expectations of self-care (states that she can do her own buttock dressings BID) and unrealistic expectations for her family care -she is difficult to turn & refuses appropriate care to avoid further skin breakdown - concerned that family will not/can not care for her as needed. -refer to care coordination notes for further details Subjective Date/time seen: 10/17/21 08:15 Interval history: Denise is a 61-year-old female smoker with history of mulitiple TIAs, cerebrovascular accident in 2017, coronary artery disease, ischemic
[2021-10-17] MEDS: FLUTICASONE/SALMETEROL 115-21 MCG INHALER 1 PUFF 2 PUFF INHALATION ×2 (08:39→20:08)
[2021-10-17 08:41] VITALS: O2SAT 94
--- NOTE | 2021-10-17 12:55 | PCPTNOTE ---
pt refused PT treatment; present and verbally discussed with him transfer bed<> w/c, total lift-slide transfer with arm rest of chair removed. Charanjit stated that is how they have been doing it at home, with him and his son assisting her, but pt not wanting to get out of bed, they have not done lately. He did not have any questions for me. In front of the pt, I reinforced that she should be getting OOB to chair.
--- NOTE | 2021-10-17 13:00 | WPDUROPN2 ---
Progress Note: A&P Assessment and Plan (1) Bladder stones: Code(s): N21.0 - Calculus in bladder Status: Acute Assessment and Plan: she is asymptomatic. urine culture negatuve (2) Staghorn kidney stones: Code(s): N20.0 - Calculus of kidney Status: Acute Assessment and Plan: She has bilateral staghorn stones and stone fragments in her bladder -I discussed with her and her that these stones are very large and will continue to grow and could cause life threatening problems if she chooses to not treat them. We discussed stone treatment options with observation, ESWL, URS, and PCNL. Given there stone sizes these would be best treated by PCNL. I will discuss with Dr Yancey or Dr Garza possibly arranging treatment of these via PCNL ( in STL at [facility] as equipment is not available to perform at [place]) at a later date after her acute issues have subsided Subjective Subjective Date/Time Seen: 10/17/21 13:00 NAEO, denies gu complaints. no pain or hematuria Review of Systems Review of Systems: All systems reviewed & are unremarkable except as noted in HPI and below Constitutional: Constitutional: Reports as per HPI Eyes: Eyes: Reports no additional eye complaints ENT: Reports Normal hearing present Cardiovascular: Cardiovascular: Reports no additional cardiovascular complaints Respiratory: Respiratory: Reports no additional respiratory complaints Gastrointestinal: Gastrointestinal: Reports no additional gastrointestinal complaints and Denies change in bowel habits Genitourinary: Genitourinary: Denies hematuria Musculoskeletal: Musculoskeletal: Reports no additional musculoskeletal complaints Integumentary/Breasts: Skin/Breast: Reports system reviewed and no additional complaints, except as docu Neurologic: Reports system reviewed and no additional complaints, except as documented and Reports as per HPI Endocrine: Endocrine: Reports no additional endocrine complaints Hematologic/Lymphatic: Hematologic/Lymphatic: Reports no additional hematologic/lymphatic complaints Allergic/Immunologic: Allergic/Immunologic: Reports no additional allergic/immunologic complaints Exam Const: General: no acute distress, well developed, alert and awake HENMT: Head: normal to inspection Ears: hearing grossly normal bilaterally Eyes: General: appearance normal, both eyes and all related structures Resp: Effort & Inspection: normal respiratory effort, able to speak in complete sentences, no audible wheezes and no respiratory distress Cardio: Rate: regular rate GI: Inspection: normal to inspection GI Palp: No abdominal tenderness : General: Yes no CVA tenderness Neuro: General: oriented to person, oriented to place and oriented to time Objective Data Vital Signs Vital Signs: Vital Signs - 24 hr 10/16/21 14:00 10/16/21 20:22 10/16/21 20:28 Temperature 36.6 C 37.1 C Pulse Rate 87 85 60 Respiratory Rate 16 16 Blood Pressure 101/52 L 97/57 L Pulse Oximetry 97 95 97 10/17/21 06:00 10/17/21 08:41 Temperature 36.8 C Pulse Rate 82 Respiratory Rate 14 Blood Pressure 91/54 L Pulse Oximetry 94 94 Intake/Output Intake/Output: Intake & Output 10/14/21 10/15/21 10/16/21 10/17/21 23:59 23:59 23:59 23:59 Intake Total 1370 1460 800 Output Total 0 Balance 1370 1460 800 Meds/Results Medications: Active Medications Generic Name Dose Route Start Last Admin Trade Name Freq PRN Reason Stop Dose Admin Aspirin 81 mg 10/16/21 09:00 10/17/21 08:08 Aspirin 81 Mg Enteric Tablet PO 81 mg DAILY REGINA Administration Atorvastatin Calcium 80 mg 10/16/21 09:00 10/17/21 08:08 Atorvastatin 40 Mg Tablet PO 80 mg DAILY REGINA Administration Piperacillin/Tazobactam/Dextrose 3.375 gm in 50 mls @ 100 mls/hr 10/15/21 15:00 10/17/21 08:47 Zosyn 3.375 Gm/D5w 50ml Pm IVPB Infused Q6H REGINA Infusion Levothyroxine Sodium 100 mcg 10/18/21
[2021-10-17 15:45] VITALS: BP 97/54; PULSE 95; RESP 16; TEMP 36.8; O2SAT 93
[2021-10-17 20:08] VITALS: BP 106/46; PULSE 93; RESP 16; TEMP 36.7; O2SAT 95
[2021-10-17 20:15] VITALS: PULSE 60; O2SAT 96
[2021-10-18 04:36] VITALS: BP 102/58; PULSE 95; RESP 18; TEMP 36.8; O2SAT 97
[2021-10-18 05:15] LABS: Basophils Percent Auto 0.4 % (0.2-1.2); Eosinophils Absolute Auto 0.1 K/mm3 (0-0.3); Eosinophils Percent Auto 0.9 % (0-4.4); Hemoglobin 10.7 g/dL (12.0-15.0); Immature Granulocyte Absolute 0.03 K/mm3 (0.00-0.031); Immature Granulocyte Percent A 0.3 % (0-0.5); Lymphocytes Absolute Auto 1.21 K/mm3 (0.9-3.2); Lymphocytes Percent Auto 13.4 % (18.3-44.2); Mean Corpuscular HGB Conc 33.4 g/dl (32-36); Mean Corpuscular Hemoglobin 30.7 pg (26-34); Mean Corpuscular Volume 91.7 fl (80-100); Mean Platelet Volume 9.3 fl (7.4-10.4); Monocytes Absolute Auto 1.2 K/mm3 (0.1-0.6); Monocytes Percent Auto 12.9 % (2.6-8.5); Neutrophils Absolute Auto 6.5 K/mm3 (1.3-6.7); Neutrophils Percent Auto 72.1 % (45.5-73.1); Platelet Count Result 416 k/mm3 (150-375); Red Blood Count 3.49 M/mm3 (4.2-5.4); Red Cell Distribution Width 14.6 % (11.5-14.5)
[2021-10-18 05:27] LABS: Alanine Aminotransferase 51 U/L (4-35); Albumin Level 2.9 g/dL (3.5-5.1); Alkaline Phosphatase 144 U/L (38-126); Anion Gap 4 mmol/L (8-16); Aspartate Amino Transferase 62 U/L (14-36); Bilirubin,Total 0.7 mg/dL (0.2-1.3); Blood Urea Nitrogen 3 mg/dL (7-17); Calcium 8.1 mg/dL (8.4-10.2); Carbon Dioxide 27 mmol/L (22-30); Chloride 98 mmol/L (98-107); Estimated CRCL calculation 89 ml/min; Estimated Glomerular Filt Rate > 60; Glucose 101 mg/dL (65-110); Potassium 3.3 mmol/L (3.4-5.0); Sodium 129 mmol/L (137-145)
[2021-10-18] MEDS: LEVOTHYROXINE SODIUM 100 MCG TABLET PO (05:31)
[2021-10-18 08:00] VITALS: O2SAT 96
[2021-10-18] MEDS: FLUTICASONE/SALMETEROL 115-21 MCG INHALER 1 PUFF 2 PUFF INHALATION ×2 (08:50→19:54)
[2021-10-18] MEDS: ASPIRIN 81 MG ENTERIC TABLET PO (09:25)
[2021-10-18] MEDS: ATORVASTATIN 40 MG TABLET 80 MG PO (09:25)
[2021-10-18 09:29] VITALS: BP 106/65
--- NOTE | 2021-10-18 11:14 | PM.IMPN ---
Progress Note: A&P Additional Plan 61-year-old female smoker with history of TIAs, cerebrovascular accident in 2017, coronary artery disease, ischemic cardiomyopathy, combined systolic and diastolic congestive heart failure, hypothyroidism, and hyperlipidemia, admitted for sacral decubitus ulcer. She is s/p surgical debridement on 10/15/21 (1) Decubitus ulcer of sacral region: -Status post excisional debridement and washout 10/15/21. -no wound cultures done -Continue Zosyn -blood cultures x 2 and urine cultures shows no growth -no leucocytosis -nursing continuing dressing changes BID, patient will need to have care and dressing changes BID -appreciate general surgery consultation (2) Staghorn kidney stones: B/L Stagehorn calculi with multiple bladder calculi appreciate Urology help As per Urology I discussed with her and her that these stones are very large and will continue to grow and could cause life threatening problems if she chooses to not treat them. We discussed stone treatment options with observation, ESWL, URS, and PCNL. Given there stone sizes these would be best treated by PCNL. I will discuss with Dr Yancey or Dr Garza possibly arranging treatment of these via PCNL ( in STL at [facility] as equipment is not available to perform at [place]) at a later date after her acute issues have subsided -Renal function is normal. UA was abnormal but urine culture negative, anyways on Zosyn for decubitus ulcer (3) Coronary artery disease+Ischemic Cardiomyopathy: -No acute issues., stable -Continue aspirin, statin, and beta-miguel. (4) hyponatremia+Hypokalemia: Supplement potassium Worsening sodium, will monitor No mental status changes Recheck BMP in AM (5) Hypothyroidism -Continue levothyroxine -dose slightly increased -TSH 5.07 on 10/16/21, T4 is WNL -repeat TSH in 6 weeks. (6) Tobacco dependence: -She declines the need for nicotine patch. -She is not interested in smoking cessation. -need to educate family and friend how to help with smoking cessation and avoid bring the nicotine in home (7) Code:Full (8)DVT ppx: Hep Sq (9)Dispo: wants to return home, not medically ready yet, recommend SNF at this point, care co ordination on board -at request of ER providers care coordination has attempted to file an adult protective services report due to the severity of the patient's wound as she is bed bound Subjective Date/time seen: 10/18/21 11:14 No acute events overnight. She is adamant about going home instead of SNF Review of Systems Constitutional: Constitutional: Reports no additional constitutional complaints ENT: Reports system reviewed and no additional complaints, except as documented Cardiovascular: Cardiovascular: Reports no additional cardiovascular complaints Respiratory: Respiratory: Reports no additional respiratory complaints Gastrointestinal: Gastrointestinal: Reports no additional gastrointestinal complaints Musculoskeletal: Musculoskeletal: Reports back pain Neurologic: Reports system reviewed and no additional complaints, except as documented Endocrine: Endocrine: Reports no additional endocrine complaints Hematologic/Lymphatic: Hematologic/Lymphatic: Reports no additional hematologic/lymphatic complaints Allergic/Immunologic: Allergic/Immunologic: Reports no additional allergic/immunologic complaints Exam Narrative: no acute distres Const: General: comfortable HENMT: Head: normal to inspection Neck: Neck: normal visual inspection Cardio: Rate: regular rate Heart sounds: S1 normal heart sound present and S2 normal heart sound present GI: Inspection: normal to inspection GI Palp: Yes abdominal tenderness, No Abdominal aortic bruit present, No Soft to palpation, No Firmness to palpation present (GI), No Tenderness to palpation present (GI), No Guarding due to palpation present (GI), No Rigid due to palpation, No No hepatosplenomegaly present, No Hepatosplenomegal
[2021-10-18 14:40] VITALS: BP 118/63; PULSE 96; RESP 16; TEMP 36.6; O2SAT 97
[2021-10-18] MEDS: POTASSIUM CHLORIDE 20 MEQ PACKET (FOR LIQUID) 40 MEQ PO (15:16)
[2021-10-18 19:58] VITALS: O2SAT 97
[2021-10-18 22:00] VITALS: BP 101/48; PULSE 76; RESP 18; TEMP 36.4; O2SAT 95
[2021-10-19] MEDS: LEVOTHYROXINE SODIUM 100 MCG TABLET PO (05:30)
[2021-10-19 05:54] LABS: Basophils Absolute Auto 0.1 K/mm3 (0.0-0.1); Basophils Percent Auto 0.7 % (0.2-1.2); Eosinophils Absolute Auto 0.2 K/mm3 (0-0.3); Eosinophils Percent Auto 2.7 % (0-4.4); Hemoglobin 10.6 g/dL (12.0-15.0); Immature Granulocyte Absolute 0.04 K/mm3 (0.00-0.031); Immature Granulocyte Percent A 0.5 % (0-0.5); Lymphocytes Absolute Auto 1.47 K/mm3 (0.9-3.2); Lymphocytes Percent Auto 18.1 % (18.3-44.2); Mean Corpuscular HGB Conc 33.1 g/dl (32-36); Mean Corpuscular Hemoglobin 31.1 pg (26-34); Mean Corpuscular Volume 93.8 fl (80-100); Mean Platelet Volume 9.1 fl (7.4-10.4); Monocytes Absolute Auto 0.8 K/mm3 (0.1-0.6); Monocytes Percent Auto 10.3 % (2.6-8.5); Neutrophils Absolute Auto 5.5 K/mm3 (1.3-6.7); Neutrophils Percent Auto 67.7 % (45.5-73.1); Platelet Count Result 433 k/mm3 (150-375); Red Blood Count 3.41 M/mm3 (4.2-5.4); Red Cell Distribution Width 14.7 % (11.5-14.5); White Blood Count 8.1 K/mm3 (4.5-10.0)
[2021-10-19 06:00] VITALS: BP 105/54; PULSE 84; RESP 18; TEMP 36.7; O2SAT 97
[2021-10-19 06:12] LABS: Alanine Aminotransferase 41 U/L (4-35); Albumin Level 2.9 g/dL (3.5-5.1); Alkaline Phosphatase 125 U/L (38-126); Anion Gap 4 mmol/L (8-16); Aspartate Amino Transferase 47 U/L (14-36); Bilirubin,Total 0.5 mg/dL (0.2-1.3); Blood Urea Nitrogen 3 mg/dL (7-17); Calcium 8.3 mg/dL (8.4-10.2); Carbon Dioxide 28 mmol/L (22-30); Chloride 102 mmol/L (98-107); Estimated CRCL calculation 89 ml/min; Estimated Glomerular Filt Rate > 60; Glucose 92 mg/dL (65-110); Potassium 3.7 mmol/L (3.4-5.0); Sodium 134 mmol/L (137-145)
[2021-10-19 07:47] LABS: Glucose Point of Care 124 mg/dl (65-105)
--- NOTE | 2021-10-19 08:12 | PM.IMPN ---
Progress Note: A&P Additional Plan 61-year-old female smoker with history of TIAs, cerebrovascular accident in 2017, coronary artery disease, ischemic cardiomyopathy, combined systolic and diastolic congestive heart failure, hypothyroidism, and hyperlipidemia, admitted for sacral decubitus ulcer. She is s/p surgical debridement on 10/15/21 (1) Decubitus ulcer of sacral region: -Status post excisional debridement and washout 10/15/21. -no wound cultures done -Continue Zosyn untill in hospital, no need for abx upon discharge -blood cultures x 2 shows no growth -no leucocytosis -dressing changes recommendation as per surgical service -appreciate general surgery consultation, outpatient follow up with Dr Luna in 2-3 weeks (2) Staghorn kidney stones: B/L Stage[place] calculi with multiple bladder calculi appreciate Urology help As per Urology I discussed with her and her that these stones are very large and will continue to grow and could cause life threatening problems if she chooses to not treat them. We discussed stone treatment options with observation, ESWL, URS, and PCNL. Given there stone sizes these would be best treated by PCNL. I will discuss with Dr Yancey or Dr Garza possibly arranging treatment of these via PCNL ( in STL at [facility] as equipment is not available to perform at [place]) at a later date after her acute issues have subsided -Renal function is normal. UA was abnormal but urine culture negative, anyways on Zosyn for decubitus ulcer (3) Coronary artery disease+Ischemic Cardiomyopathy: -No acute issues., stable -Continue aspirin, statin, and beta-miguel. (4) hyponatremia+Hypokalemia: improved Recheck BMP in AM (5) Hypothyroidism -Continue levothyroxine -dose slightly increased -TSH 5.07 on 10/16/21, T4 is WNL -repeat TSH in 6 weeks. (6) Tobacco dependence: -started on nicotine patch (7) Code:Full (8)DVT ppx: Hep Sq (9)Dispo: finally has agreed for SNF, hr manager aware, working on it, can be discharged once has a bed/insurance approval Time Spent With Patient Time with patient: 25 - 35 minutes Subjective Date/time seen: 10/19/21 08:12 Interval history: no acute events overnight Review of Systems Review of Systems: All systems reviewed & are unremarkable except as noted in HPI and below Constitutional: Constitutional: Reports no additional constitutional complaints Eyes: Eyes: Reports no additional eye complaints ENT: Reports system reviewed and no additional complaints, except as documented Cardiovascular: Cardiovascular: Reports no additional cardiovascular complaints Respiratory: Respiratory: Reports no additional respiratory complaints Gastrointestinal: Gastrointestinal: Reports no additional gastrointestinal complaints Neurologic: Reports system reviewed and no additional complaints, except as documented Exam Const: General: no acute distress HENMT: Mouth: Yes moist mucous membranes Eyes: Pupils: Equal, round and reactive pupils present Neck: Neck: supple Resp: Effort & Inspection: normal respiratory effort Auscultation: clear to auscultation bilaterally Cardio: Rate: regular rate Rhythm: regular rhythm GI: GI Palp: Yes Soft to palpation Auscultation: normal bowel sounds Skin: General skin exam: normal color Neuro: Cognition (Neuro): normal cognition Psych: Mental Status: mental status grossly normal Objective Data Vital Signs Vital Signs: Vital Signs - 24 hr 10/18/21 09:29 10/18/21 14:40 10/18/21 19:58 Temperature 97.8 F Pulse Rate 96 Respiratory Rate 16 Blood Pressure 106/65 118/63 Pulse Oximetry 97 97 10/18/21 22:00 10/19/21 06:00 Temperature 97.5 F L 98.0 F Pulse Rate 76 84 Respiratory Rate 18 18 Blood Pressure 101/48 L 105/54 L Pulse Oximetry 95 97 Intake/Output Intake/Output: Intake & Output 10/16/21 10/17/21 10/18/21 10/19/21 23:59 23:59 23:59 23:59 Intake Total 1460 1725 2410 850 Balance 1460 172
[2021-10-19] MEDS: FLUTICASONE/SALMETEROL 115-21 MCG INHALER 1 PUFF 2 PUFF INHALATION ×2 (08:26→21:30)
[2021-10-19 08:27] VITALS: O2SAT 94
[2021-10-19 09:27] VITALS: PULSE 68
[2021-10-19] MEDS: ATORVASTATIN 40 MG TABLET 80 MG PO (09:27)
[2021-10-19] MEDS: METOPROLOL SUCCINATE EXT REL 50 MG TABCR PO (09:27)
[2021-10-19] MEDS: ASPIRIN 81 MG ENTERIC TABLET PO (09:27)
[2021-10-19 11:44] LABS: Glucose Point of Care 135 mg/dl (65-105)
--- NOTE | 2021-10-19 13:41 | P.CDI_ITS ---
CDI Query Clarification Request 10/15 ER phycian documented: Clinical impression, Decubitus ulcer of sacral region, Sepsis, Pyuria -Abdomen/Pelvis CT 10/15/21 09:38 IMPRESSION: Prominent sacral decubitus ulcer and prominent soft tissue inflammation overlying the sacrococcygeal area, without abscess or obvious sacra l or coccygeal osteomyelitis identified; bone scan would be more sensitive for detection of early osteomyelitis. -Please clarify if Sepsis and Pyuria as diagnosis has been ruled in or ruled out or unable to determine. <Cinthia Pandya - Last Filed: 10/19/21 13:48> sepsis and pyuria ruled out <Beti Jackson MD - Last Filed: 10/19/21 15:04>
[2021-10-19 14:37] VITALS: BP 110/74; PULSE 89; RESP 18; TEMP 36.9; O2SAT 94
--- NOTE | 2021-10-19 14:41 | PM.PNGS ---
Progress Note: A&P Assessment and Plan (1) Decubitus ulcer of sacral region: Code(s): L89.159 - Pressure ulcer of sacral region, unspecified stage Status: Acute Assessment and Plan: S/p debridement on 10/15 and progressing well. Will switch to Santyl dressing changes daily for enzymatic debridement. Discussed with patient and about discharging to a SNF for rehab and wound care - they agreed to see what their options are and I spoke with CC who is working on placement. Okay with discharge from a surgical standpoint when placement is ready and okay with primary service. Okay to stop antibiotics on discharge. Follow-up in a 2-[address] Luna. Additional Plan I have discussed the patient's case and plan of care with Dr. Luna. Subjective Subjective Date/Time Seen: 10/19/21 14:41 Post Op day: 4 Interval history: Patient seen and examined with her at the bedside. She denies any pain. No specific complaints on my exam. Exam Skin: Other: Sacral decubitus ulcer with yellow slough in the wound bed and a few scattered areas of pink tissue, no purulent drainage and no odor. No surrounding erythema. Objective Data Vital Signs Vital Signs: Vital Signs - 24 hr 10/18/21 19:58 10/18/21 22:00 10/19/21 06:00 Temperature 97.5 F L 98.0 F Pulse Rate 76 84 Respiratory Rate 18 18 Blood Pressure 101/48 L 105/54 L Pulse Oximetry 97 95 97 10/19/21 08:27 10/19/21 09:27 Temperature Pulse Rate 68 Respiratory Rate Blood Pressure Pulse Oximetry 94 Intake/Output Intake/Output: Intake & Output 10/16/21 10/17/21 10/18/21 10/19/21 23:59 23:59 23:59 23:59 Intake Total 1460 1725 2410 1340 Balance 1460 1725 2410 1340 Meds/Results Medications: Active Medications Generic Name Dose Route Start Last Admin Trade Name Freq PRN Reason Stop Dose Admin Aspirin 81 mg 10/16/21 09:00 10/19/21 09:27 Aspirin 81 Mg Enteric Tablet PO 81 mg DAILY [facility] Administration Atorvastatin Calcium 80 mg 10/16/21 09:00 10/19/21 09:27 Atorvastatin 40 Mg Tablet PO 80 mg DAILY REGINA Administration Collagenase 1 applic 10/19/21 14:40 Collagenase Oint 30 Gm Tube TOPICAL DAILY [facility] Heparin Sodium (Porcine) 5,000 units 10/18/21 21:00 10/19/21 09:27 Heparin Sodium 5,000 Units/Ml Vial SUB-Q Not Given Q12HR [facility] Piperacillin/Tazobactam/Dextrose 3.375 gm in 50 mls @ 100 mls/hr 10/15/21 15:00 10/19/21 09:55 Zosyn 3.375 Gm/D5w 50ml Pm IVPB Infused Q6H [facility] Infusion Levothyroxine Sodium 100 mcg 10/18/21 06:30 10/19/21 05:30 Levothyroxine Sodium 100 Mcg Tablet PO 100 mcg DAILY@0630 [facility] Administration Metoprolol Succinate 50 mg 10/16/21 09:00 10/19/21 09:27 Metoprolol Succinate Ext Rel 50 Mg Tabcr PO 50 mg DAILY [facility] Administration Miscellaneous Information 0 each 10/19/21 00:01 Where To Apply Collagenase Ointment? XX 11/18/21 00:00 CLARIFY [facility] Nicotine 1 patch 10/19/21 15:00 Nicotine (*Maricarmen) 21 Mg Patch TRANSDERM QAM [facility] Ondansetron HCl 4 mg 10/15/21 11:34 Ondansetron Inj 4 Mg/2 Ml Vial IV PUSH Q4H PRN Nausea Ondansetron HCl 4 mg 10/15/21 13:04 Ondansetron Inj 4 Mg/2 Ml Vial IV PUSH ONCE PRN Nausea Fluticasone/Salmeterol 2 puff 10/15/21 20:00 10/19/21 08:26 Fluticasone/Salmeterol 115-21 Mcg Inhaler 1 Puff INHALATION 2 puff Q12HRT [facility] Administration Radiology Results: ITS Impressions Chest X-Ray 10/15/21 08:50 IMPRESSION: 1. No acute cardiopulmonary disease. Abdomen/Pelvis CT 10/15/21 09:38 IMPRESSION: Prominent sacral decubitus ulcer and prominent soft tissue inflammation overlying the sacrococcygeal area, without abscess or obvious sacral or coccygeal osteomyelitis identified; bone scan would be more sensitive for detection of early osteomyelitis. Myocardial infarction Small sliding hiatal hernia Bilateral staghorn renal calculi Numerous bladder calculi
[2021-10-19] MEDS: COLLAGENASE OINT 30 GM TUBE 1 APPLIC TOPICAL (16:36)
[2021-10-19 16:38] LABS: Glucose Point of Care 131 mg/dl (65-105)
[2021-10-19 20:00] VITALS: PULSE 92; RESP 18; O2SAT 96
[2021-10-19 20:42] VITALS: BP 111/67; PULSE 92; RESP 18; TEMP 36.3; O2SAT 96
[2021-10-19] MEDS: HEPARIN SODIUM 5,000 UNITS/ML VIAL 5000 UNITS SUB-Q (23:01)
[2021-10-20] VITALS (7 sets, daily range): BP systolic 102–108; BP diastolic 54–64; PULSE 74–88; RESP 16–18; TEMP 36.2–36.8; O2SAT 95–97
[2021-10-20] MEDS: NICOTINE (*PBKC) 21 MG PATCH 1 PATCH TRANSDERM (00:35)
[2021-10-20] MEDS: LEVOTHYROXINE SODIUM 100 MCG TABLET PO (03:02)
[2021-10-20 05:39] LABS: Anion Gap 4 mmol/L (8-16); Blood Urea Nitrogen 7 mg/dL (7-17); Calcium 8.3 mg/dL (8.4-10.2); Carbon Dioxide 27 mmol/L (22-30); Chloride 100 mmol/L (98-107); Estimated CRCL calculation 89 ml/min; Estimated Glomerular Filt Rate > 60; Glucose 97 mg/dL (65-110); Potassium 3.6 mmol/L (3.4-5.0); Sodium 131 mmol/L (137-145)
[2021-10-20] MEDS: FLUTICASONE/SALMETEROL 115-21 MCG INHALER 1 PUFF 2 PUFF INHALATION ×2 (08:26→20:10)
[2021-10-20] MEDS: COLLAGENASE OINT 30 GM TUBE 1 APPLIC TOPICAL (09:02)
[2021-10-20] MEDS: METOPROLOL SUCCINATE EXT REL 50 MG TABCR PO (09:02)
[2021-10-20] MEDS: ATORVASTATIN 40 MG TABLET 80 MG PO (09:02)
[2021-10-20] MEDS: ASPIRIN 81 MG ENTERIC TABLET PO (09:02)
--- NOTE | 2021-10-20 11:02 | PM.IMPN ---
Progress Note: A&P Assessment and Plan (1) Decubitus ulcer of sacral region: Code(s): L89.159 - Pressure ulcer of sacral region, unspecified stage Status: Acute Assessment and Plan: -Status post excisional debridement and washout 10/15/21. -no wound cultures done -Continue Zosyn started 10/15/2021 -blood cultures x 2 and urine cultures shows no growth -no fevers -WBC improved from 13.9 to 9.7 now -nursing continuing dressing changes BID, patient will need to have care and dressing changes BID -appreciate general surgery consultation (2) Abnormal urinalysis: Code(s): R82.90 - Unspecified abnormal findings in urine Status: Acute Assessment and Plan: -Patient denies having signs or symptoms of urinary tract infection. -Continue Zosyn -blood cultures x 2 and urine cultures shows no growth -no fevers -WBC improved from 13.9 to 9.7 now -will repeat UA now (3) Staghorn kidney stones: Code(s): N20.0 - Calculus of kidney Status: Acute Assessment and Plan: -Patient has no history of nephrolithiasis / bladder stones to her knowledge. -Given bilateral staghorn calculi and numerous bladder calculi, I will ask the urologist to see her in consultation for recommendations though not causing an acute issue she will have difficulties leaving the home for outpatient appointments. -Renal function is normal. -Continue IV Zosyn -Urology advising renal stones to be treated by PCNL in [facility] at [facility] as equipment is not available to perform at [place]. - rehydrate and improve UA for now (4) Coronary artery disease: Code(s): I25.10 - Atherosclerotic heart disease of [place] coronary artery without angina pectoris Status: Chronic Assessment and Plan: -No acute issues. -Continue aspirin, statin, and beta-miguel. -Her BPs have been borderline low, 91/54 to 97/57 - holding her Metoprolol. (5) Ischemic cardiomyopathy: Code(s): I25.5 - Ischemic cardiomyopathy Status: Chronic Assessment and Plan: -Clinically she is euvolemic. -Avoid over-hydration. - Her BPs have been borderline low, 91/54 to 97/57 - holding her Metoprolol. (6) Chronic hyponatremia: Code(s): E87.1 - Hypo-osmolality and hyponatremia Status: Acute Assessment and Plan: -Sodium is stable and will be monitored. -Sodium 132 today -no neurological deficits noted, no confusion (7) Hypothyroidism: Code(s): E03.9 - Hypothyroidism, unspecified Status: Acute Assessment and Plan: -Continue levothyroxine -dose slightly increased -TSH 5.07 on 10/16/21, T4 is WNL -repeat TSH in 6 weeks. (8) Tobacco dependence: Code(s): F17.200 - Nicotine dependence, unspecified, uncomplicated Status: Acute Assessment and Plan: -She declines the need for nicotine patch. -She is not interested in smoking cessation. -need to educate family and friend how to help with smoking cessation and avoid bring the nicotine in home (9) Discharge planning issues: Code(s): Z02.9 - Encounter for administrative examinations, unspecified Status: Acute Assessment and Plan: -pt comes from home where and son care for her, she would like to return there -at request of ER providers care coordination has attempted to file an adult protective services report due to the severity of the patient's wound as she is bed bound -patient has unrealistic expectations of self-care (states that she can do her own buttock dressings BID) and unrealistic expectations for her family care -she is difficult to turn & refuses appropriate care to avoid further skin breakdown - concerned that family will not/can not care for her as needed. -refer to care coordination notes for further details Subjective Date/time seen: 10/20/21 11:02 Interval history: No new complaints. Tolerated food. Denies any abdominal pain. Awaiting insurance authorization for transfer to [facility]
[2021-10-21 05:33] VITALS: BP 106/78; PULSE 89; RESP 18; TEMP 36.6; O2SAT 98
[2021-10-21] MEDS: LEVOTHYROXINE SODIUM 100 MCG TABLET PO (06:35)
[2021-10-21 08:29] VITALS: O2SAT 96
[2021-10-21] MEDS: FLUTICASONE/SALMETEROL 115-21 MCG INHALER 1 PUFF 2 PUFF INHALATION ×2 (08:29→20:25)
[2021-10-21 09:03] VITALS: PULSE 62
[2021-10-21] MEDS: METOPROLOL SUCCINATE EXT REL 50 MG TABCR PO (09:03)
[2021-10-21] MEDS: COLLAGENASE OINT 30 GM TUBE 1 APPLIC TOPICAL (09:03)
[2021-10-21] MEDS: ASPIRIN 81 MG ENTERIC TABLET PO (09:04)
[2021-10-21] MEDS: ATORVASTATIN 40 MG TABLET 80 MG PO (09:36)
--- NOTE | 2021-10-21 10:59 | PC.NURSE ---
The patients contacted this nurse in regards to the patient feeling as though she was bullied into going into a facility. This nurse informed the patient's that because she is alert and oriented she definitely has the right to refuse care or going to a facility and if she wishes to go back home to continue her treatment that is completely fine, but there is a good chance she will get another infection or worsening of the wound because she can not receive the proper treatment. The has stated that he is unable to turn her and clean her up throughout the day and waits until he has some help. This nurse informed the that I would be in contact with the doctors, wound care and care coordination in regards to how we can help facilitate the patients wishes but also ensuring that she gets the proper treatment and care. This nurse contacted the and requested that he come up and be with the patient bedside so that this nurse and wound care could come and discuss the patients options with them. There is a lot of information to discuss and review and it is important that we do this with both of them together. Per the patients he could be here this afternoon once his daughter gets home around 1230.
--- NOTE | 2021-10-21 14:06 | PCWOUND ---
WOCN NOTE Talked with patient and spouse for 30 minutes to explain home wound care needs and answer questions. patient and spouse express that they want ot try and have patient admitted to [facility] and agree they would struggle to care for patient at home.
[2021-10-21 14:30] VITALS: BP 102/48; PULSE 84; RESP 16; TEMP 36.6; O2SAT 95
--- NOTE | 2021-10-21 15:30 | PM.DS ---
DS: Admitting Diagnosis Discharge Date 10/21/2021 Admitting Diagnosis Sacral decubitus ulcer infection DS: Discharge Diagnosis Discharge Diagnosis (1) Decubitus ulcer of sacral region: Code(s): L89.159 - Pressure ulcer of sacral region, unspecified stage Status: Acute Assessment and Plan: -Status post excisional debridement and washout 10/15/21. -no wound cultures done -Continue Zosyn started 10/15/2021 -blood cultures x 2 and urine cultures shows no growth -no fevers -WBC improved from 13.9 to 9.7 to the hospitalization course -nursing continuing dressing changes BID, patient will need to have care and dressing changes BID -appreciate general surgery consultation Need regular wound care (2) Abnormal urinalysis: Code(s): R82.90 - Unspecified abnormal findings in urine Status: Acute Assessment and Plan: -Patient denies having signs or symptoms of urinary tract infection. -Continue Zosyn -blood cultures x 2 and urine cultures shows no growth -WBC improved from 13.9 to 9.7 (3) Staghorn kidney stones: Code(s): N20.0 - Calculus of kidney Status: Acute Assessment and Plan: -Patient has no history of nephrolithiasis / bladder stones to her knowledge. -Given bilateral staghorn calculi and numerous bladder calculi, I will ask the urologist to see her in consultation for recommendations though not causing an acute issue she will have difficulties leaving the home for outpatient appointments. -Renal function is normal. -Urology advising renal stones to be treated by PCNL in [facility] at [facility] as equipment is not available to perform at [place]. Follow-up with urology as an outpatient basis (4) Coronary artery disease: Code(s): I25.10 - Atherosclerotic heart disease of [place] coronary artery without angina pectoris Status: Chronic Assessment and Plan: -No acute issues. -Continue aspirin, statin, and beta-miguel. (5) Ischemic cardiomyopathy: Code(s): I25.5 - Ischemic cardiomyopathy Status: Chronic Assessment and Plan: -Clinically she is euvolemic. -Avoid over-hydration. (6) Chronic hyponatremia: Code(s): E87.1 - Hypo-osmolality and hyponatremia Status: Acute Assessment and Plan: -Sodium is stable and will be monitored. -no neurological deficits noted, no confusion (7) Hypothyroidism: Code(s): E03.9 - Hypothyroidism, unspecified Status: Acute Assessment and Plan: -Continue levothyroxine -dose slightly increased -TSH 5.07 on 10/16/21, T4 is WNL -repeat TSH in 6 weeks. (8) Tobacco dependence: Code(s): F17.200 - Nicotine dependence, unspecified, uncomplicated Status: Acute Assessment and Plan: -She declines the need for nicotine patch. -She is not interested in smoking cessation. -need to educate family and friend how to help with smoking cessation and avoid bring the nicotine in home (9) Discharge planning issues: Code(s): Z02.9 - Encounter for administrative examinations, unspecified Status: Acute Assessment and Plan: -pt comes from home where and son care for her, she would like to return there -at request of ER providers care coordination has attempted to file an adult protective services report due to the severity of the patient's wound as she is bed bound -patient has unrealistic expectations of self-care (states that she can do her own buttock dressings BID) and unrealistic expectations for her family care -she is difficult to turn & refuses appropriate care to avoid further skin breakdown - concerned that family will not/can not care for her as needed. -care coordination was consulted for need for going to facility for further care of her wounds so that it will continue to improve as it will be increased risk to get infected again if it is not done correctly. Insurance however denied authorization for her to go to a jail facil
[2021-10-21 20:22] VITALS: O2SAT 95
== END 2021-10-21 21:35 | disposition home health service (06) | DRG 580 ==
LOC: ANHED 11:39 → ANH2MED 11:52
PROVIDERS: Internal Medicine; Nurse Practitioner; Physician Assistant; Surgery; Admitting Provider Family Medicine; Emergency Provider General Practice; PCP Nurse Practitioner Family; Visit Provider Internal Medicine
PROC: 0KBP3ZZ Excision of Left Hip Muscle, Percutaneous Approach (ICD-10-PCS; CPT 46040; principal; 2021-10-15 13:30)
DX: L89.150 Pressure ulcer of sacral region, unstageable (principal); E87.1 Hypo-osmolality and hyponatremia; I69.359 Hemiplegia and hemiparesis following cerebral infarction affecting unspecified side; R82.90 Unspecified abnormal findings in urine; E78.5 Hyperlipidemia, unspecified; E03.9 Hypothyroidism, unspecified; F17.210 Nicotine dependence, cigarettes, uncomplicated; I10 Essential (primary) hypertension; I25.10 Atherosclerotic heart disease of native coronary artery without angina pectoris; I25.5 Ischemic cardiomyopathy; M62.569 Muscle wasting and atrophy, not elsewhere classified, unspecified lower leg; E87.6 Hypokalemia; N20.0 Calculus of kidney; N21.0 Calculus in bladder; Z90.49 Acquired absence of other specified parts of digestive tract; Z79.82 Long term (current) use of aspirin
CPT/HCPCS: 36415; 71045; 74177; 80048; 80053; 80074; 81001; 82550; 82948; 83605; 83735; 84439; 84443; 84480; 85025; 85610; 85730; 86140; 87040; 87086; 93005; 94640; 96361; 96365; 96375; 97110; 97162; 97166; 97530; 97535; 99285; A9270; G0378; J1100; J1644; J2270; J2405; J2543; J2704; J3010; J7030; J7120; Q9967